=== PATIENT | female | born 1990 | race Caucasian/White ===

== ENCOUNTER 2016-11-20 | Emergency (ER) | payer OTHER ==
--- NOTE | 2016-11-20 13:06 | ED ---
Skin/Abscess/FB HPI - General Chief complaint: Skin/Abscess/Foreign Body Stated complaint: Abscess Time Seen by Provider: 11/20/16 12:54 Source: patient, RN notes reviewed Mode of arrival: ambulatory Limitations: no limitations - History of Present Illness Initial comments: 25 yo female presents to the ER with cc labial abscess. Patient states started a few days ago. Patient denies any drainage from the area. Patient does admit to a history of abscesses. Patient denies any history of MRSA. This been no fever or chills. She is not is any redness or drainage from the area. Patient states that she was concerned due to the redness and swelling so she thought that they should be evaluated. Patient denies any recent fever, chills, shortness of breath, chest pain, back pain, abdominal pain, nausea vomiting, numbness or tingling, dysuria or hematuria, constipation or diarrhea, headaches or visual changes, or any other current symptoms. - Related Data Home Medications Medication Instructions Recorded Confirmed Gabapentin [Neurontin] 600 mg PO TID PRN 07/08/16 11/20/16 Previous Rx's Medication Instructions Recorded Sulfamethox-Tmp 800-160Mg [Bactrim 2 each PO Q12HR #56 tab 11/20/16 DS 800-160 mg] Allergies Allergy/AdvReac Type Severity Reaction Status Date / Time No Known Allergies Allergy Verified 11/20/16 12:58 Review of Systems ROS Statement: Those systems with pertinent positive or pertinent negative responses have been documented in the HPI. ROS Other: All systems not noted in ROS Statement are negative. 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 Date of last positivie culture/infection: 2008 MDRO Source:: lip Past Surgical History: No Surgical Hx Reported Additional Past Surgical History / Comment(s): Chest tube Past Psychological History: Anxiety, Depression Smoking Status: Former smoker Past Alcohol Use History: Occasional Past Drug Use History: None Reported - Past Family History Mother Family Medical History: Cancer, Musculoskeletal Disorder, Osteoarthritis (OA), Rheumatoid Arthritis (RA) General Exam Limitations: no limitations General appearance: alert, in no apparent distress ENT exam: Present: normal exam, mucous membranes moist Neck exam: Present: normal inspection. Absent: tenderness, meningismus, lymphadenopathy Respiratory exam: Present: normal lung sounds bilaterally. Absent: respiratory distress, wheezes, rales, rhonchi, stridor Cardiovascular Exam: Present: regular rate, normal rhythm, normal heart sounds. Absent: systolic murmur, diastolic murmur, rubs, gallop, clicks External exam: Present: erythema, swelling, other (labial abscess) Neurological exam: Present: alert, oriented X3, CN II-XII intact. Absent: motor sensory deficit Psychiatric exam: Present: normal affect, normal mood Skin exam: Present: warm, dry, intact, normal color. Absent: rash Course Vital Signs 11/20/16 12:32 Temperature 97.0 F L Pulse Rate 86 Respiratory 18 Rate Blood Pressure 126/89 O2 Sat by Pulse 99 Oximetry Procedures - Procedures Initial comment: Procedure: Incision and drainage The skin overlying the abscess was prepped with Betadine, and anesthetized with 1% lidocaine without epinephrine. A #11 scalpel was then used to incise the abscess. Some purulent material was then extracted from the lesion. Wound culture obtained. Gauze dressing placed on top, The patient tolerated the procedure well. Medical Decision Making - Medical Decision Making 25-year-old female presents to the emergency department with a chief complaint labial abscess. This time patient went I&D procedure. Discussed return for hours and follow-up. We discussed all the patient's questions. She states she understood she isn't agreement plan. Patient will be discharged home. Disposition Clinical Impression: Abscess of left genital labia Disposition: HOME SELF-CARE Condition: Stable Instructions: Abscess (ED), Abscess Incision and Drainage (ED) Additional Instructions: Please use medication as discussed. Please follow up with family doctor if symptoms have not improved over the next two days. Please return to the emergency room if your symptoms increase or worsen or for any other concerns. Prescriptions: Sulfamethox-Tmp 800-160Mg [Bactrim DS 800-160 mg] 2 each PO Q12HR #56 tab Referrals: Fallon Oliver MD [STAFF PHYSICIAN] - 1-2 days Time of Disposition: 13:18
== END 2016-11-20 13:30 | disposition home or self-care (01) ==
CPT/HCPCS: 56405; 99282

== ENCOUNTER 2019-04-29 11:35 | Outpatient (CLI) | payer OTHER ==
[2019-04-29 12:24] LABS: Appearance,Urine Clear (Clear); Bilirubin,Urine Negative (Negative); Blood,Urine Negative (Negative); Color,Urine Yellow; Glucose,Urine (UA) Negative (Negative); Ketones,Urine 1+ (Negative); Leukocyte Esterase,Urine Negative (Negative); Nitrite,Urine Negative (Negative); PH, Urine 6.5 (5.0-8.0); Protein,Urine Negative (Negative); Specific Gravity,Urine 1.022 (1.001-1.035); Urobilinogen,Urine <2.0 mg/dL (<2.0)
[2019-04-29 12:35] VITALS: PULSE 81; RESP 16; TEMP 98.1
--- NOTE | 2019-04-29 17:59 | P.MSEPDOC ---
Presenting Problems - Arrival Data Date of Arrival on Unit: 04/29/19 Time of Arrival on Unit: 11:35 Mode of Transport: Ambulatory - Complaint OB-Reason for Admission/Chief Complaint: Other Comment: cramping Medical History - Information : 2 Para: 0 Term: 0 : 0 Abortions: Spontaneous or Elective: 1 Number of Living Children: 0 - Gestational Age Gestational Age by RICHAR (wks/days): 22 Weeks and 5 Days - History Complications: Smoker Review of Systems - Review of Systems Constitutional: No problems Breast: No problems ENT: No problems Cardiovascular: No problems Respiratory: No problems Gastrointestinal: No problems Genitourinary: No problems Musculoskeletal: No problems Neurological: No problems Skin: No problems Vital Signs - Temperature Temperature: 98.1 F Temperature Source: Temporal Artery Scan - Pulse Right Brachial Pulse Rate: 81 Pulse Assessment Method: Automatic Cuff - Respirations Respiratory Rate: 16 Oxygen Delivery Method: Room Air Medical Screen Scoring (Pre) - Cervical Exam Dilation: Exam Deferred Effacement: Exam Deferred Membranes: Intact - Uterine Contractions Frequency: N/A Duration: N/A Intensity: N/A - Maternal Vital Signs Maternal Temperature: N/A Signs of Preeclampsia: N/A Maternal Respirations: N/A - Assessment - Baby A Heart Rate - NICHD Category: Category I (Normal) = 0 - Total Score - Baby A Total Score - Baby A: 0 - Total Score - Baby B Total Score - Baby B: 0 - Total Score - Baby C Total Score - Baby C: 0 - Level of Risk - Baby A Level of Risk - Baby A: Low (0-5) - Level of Risk - Baby B Level of Risk - Baby B: Low (0-5) - Level of Risk - Baby C Level of Risk - Baby C: Low (0-5) Physician Notification (Pre) - Notification Comment Comment: doppler 131-148, abdomen soft and nontender to palpation Physician Notification (Post) - Physician Notified Physician Notified Date: 04/29/19 Physician Notified Time: 12:47 Spoke With: Juanito Fountain Order Received: Yes - Notification Comment Comment: +1 Ketones in urine, not jonathan per toco, closed thick and firm. D/C with instruction to find ob care provider Disposition - Disposition OB Disposition: Discharge to home, Written follow up instructions reviewed Discharge Date: 04/29/19 Discharge Time: 13:00 I agree with the RN Medical Screening Exam: Yes Risk & Benefit of care provided described in d/c instruction: Yes Diagnosis: FALSE LABOR BEFORE 37 COMPLETED WEEKS OF GEST, THIRD TRI
== END 2019-04-29 13:00 | disposition home or self-care (01) ==
LOC: FBPOP 11:35
PROVIDERS: ATTEND Obstetrics & Gynecology
DX: O47.03 False labor before 37 completed weeks of gestation, third trimester (principal); Z3A.22 22 weeks gestation of pregnancy
CPT/HCPCS: 81003; G0463; 99213

== ENCOUNTER → 2019-11-02 | Outpatient (CLI) | payer OTHER ==
[2019-11-02 16:42] LABS: Albumin 4.3 g/dL (3.80-4.90); Albumin/Globulin Ratio 1.87 (1.60-3.17); Anion Gap 7.7 mmol/L (4.00-12.00); Carbon Dioxide 25.3 mmol/L (21.6-31.8); Globulin 2.3 g/dL (1.6-3.3); Non-African American GFR(CKD) 77.7 (60.0-200.0); Potassium 4.2 mmol/L (3.5-5.5); Total Bilirubin 1.2 mg/dL (0.3-1.2); Total Protein 6.6 g/dL (6.2-8.2)
== END | disposition home or self-care (01) ==
LOC: LABWHC1 10:56
PROVIDERS: ATTEND Internal Medicine
DX: Z01.810 Encounter for preprocedural cardiovascular examination (principal)
CPT/HCPCS: 36415; 80053

== ENCOUNTER → 2019-11-16 | Outpatient (CLI) | payer OTHER ==
[2019-11-16 11:28] LABS: HGB 14.9 gm/dL (11.4-16.0); MCH 33.2 pg (25.0-35.0); MCHC 34.8 g/dL (31.0-37.0); MCV 95.5 fL (80.0-100.0); Mean Platelet Volume 7.9; Platelet Count 254 k/uL (150-450); WBC 5.5 k/uL (3.8-10.6)
[2019-11-16 11:42] LABS: Partial Thromboplastin Time 24.3 sec (22.0-30.0); Prothrombin Time 10.2 sec (9.0-12.0)
[2019-11-16 16:59] LABS: Anion Gap 7.4 mmol/L (4.00-12.00); Calcium 9.4 mg/dL (8.7-10.3); Carbon Dioxide 25.6 mmol/L (21.6-31.8); Non-African American GFR(CKD) 77.7 (60.0-200.0); Potassium 4.1 mmol/L (3.5-5.5)
== END | disposition home or self-care (01) ==
LOC: LABWHC1 11:05
PROVIDERS: ATTEND Internal Medicine
DX: Z01.810 Encounter for preprocedural cardiovascular examination (principal); I36.1 Nonrheumatic tricuspid (valve) insufficiency; I38 Endocarditis, valve unspecified
CPT/HCPCS: 36415; 80048; 85027; 85610; 85730

== ENCOUNTER 2019-11-19 09:32 | Emergency (ER) | payer OTHER ==
[2019-11-19 10:48] LABS: Basophils # (A) 0.1 k/uL (0-0.2); Basophils % (A) 1 %; Eosinophils # (A) 0.1 k/uL (0-0.7); Eosinophils % (A) 1 %; HCT 45.2 % (34.0-46.0); HGB 15.1 gm/dL (11.4-16.0); Lymphocytes # (A) 1.6 k/uL (1.0-4.8); Lymphocytes % (A) 23 %; MCH 31.9 pg (25.0-35.0); MCHC 33.4 g/dL (31.0-37.0); MCV 95.6 fL (80.0-100.0); Mean Platelet Volume 8.3; Monocytes # (A) 0.3 k/uL (0-1.0); Monocytes % (A) 4 %; Neutrophils # (A) 4.8 k/uL (1.3-7.7); Neutrophils % (A) 69 %; Platelet Count 246 k/uL (150-450); RBC 4.73 m/uL (3.80-5.40); RDW 12.1 % (11.5-15.5); WBC 6.9 k/uL (3.8-10.6)
[2019-11-19 10:51] LABS: Appearance,Urine Clear (Clear); Bacteria,Urine Rare /hpf; Bilirubin,Urine Negative (Negative); Blood,Urine Negative (Negative); Color,Urine Yellow; Glucose,Urine (UA) Negative (Negative); Ketones,Urine Negative (Negative); Leukocyte Esterase,Urine Moderate (Negative); Mucus,Urine Rare /hpf; Nitrite,Urine Negative (Negative); Protein,Urine Negative (Negative); RBC,Urine 1 /hpf (0-5); Squamous Epithelial Cell,Urine 4 /hpf (0-4); Urobilinogen,Urine <2.0 mg/dL (<2.0); WBC,Urine 3 /hpf (0-5)
[2019-11-19] MEDS ORDERED: KETOROLAC 30 MG/ML 1 ML VIAL IVP STA (10:52)
--- NOTE | 2019-11-19 10:57 | XR ---
EXAMINATION TYPE: XR chest 2V DATE OF EXAM: 11/19/2019 COMPARISON: NONE HISTORY: Chest pain TECHNIQUE: Frontal and lateral views of the chest are obtained. FINDINGS: There is no focal air space opacity, pleural effusion, or pneumothorax seen. The cardiac silhouette size is at the upper limit of normal. The osseous structures are intact. There are overl jesus alberto cardiac leads. IMPRESSION: No acute cardiopulmonary process.
[2019-11-19 11:03] LABS: ALT 29 U/L (4-34); AST 32 U/L (14-36); African American GFR (CKD) >90 (>60 ml/min/1.73 sqM); Albumin 4.2 g/dL (3.5-5.0); Alkaline Phosphatase 40 U/L (38-126); Amylase 44 U/L (30-110); Anion Gap 8 mmol/L; Blood Urea Nitrogen 18 mg/dL (7-17); Carbon Dioxide 22 mmol/L (22-30); Chloride 110 mmol/L (98-107); Glucose 114 mg/dL (74-99); Magnesium 1.9 mg/dL (1.6-2.3); Non-African American GFR(CKD) >90 (>60 ml/min/1.73 sqM); Sodium 140 mmol/L (137-145); Total Bilirubin 1.6 mg/dL (0.2-1.3); Total Protein 7.3 g/dL (6.3-8.2)
[2019-11-19 11:17] LABS: Potassium 4.9 mmol/L (3.5-5.1)
[2019-11-19 11:18] LABS: Partial Thromboplastin Time 22.5 sec (22.0-30.0); Prothrombin Time 10.2 sec (9.0-12.0)
[2019-11-19 11:26] VITALS: RESP 18
[2019-11-19 11:34] LABS: D-Dimer <0.17 mg/L FEU (<0.60)
--- NOTE | 2019-11-19 11:39 | ED ---
General Adult HPI - General Chief complaint: Chest Pain Stated complaint: SOB, chest/flank pain Time Seen by Provider: 11/19/19 10:01 Source: patient, RN notes reviewed Mode of arrival: ambulatory Limitations: no limitations - History of Present Illness Initial comments: 28-year-old female with a past medical history of former IV drug abuse, severe tricuspid regurgitation secondary to bacterial endocarditis, presents to the emergency determine for chief complaint of chest pain or shortness of breath. Patient states that this has been ongoing for the past month that seems to be worsening. States the pain worsens when she takes a deep breath. States that she is 3-1/2 months. Patient had a negative heart catheterization yesterday by [facility]. She is supposed to see a cad programmer according to her blast furnace keeper.patient denies fevers. States she has not used IV drugs for 4 years. Patient has no other complaints at this time including chest pain, abdominal pain, nausea or vomiting, headache, or visual changes. Heart catheterization records from yesterday were obtained for evaluation of intrapulmonary and intracardiac pressures. These showed a normal right-sided pressure without intracardiac shunt. Normal cardiac output and cardiac index. - Related Data Home Medications Medication Instructions Recorded Confirmed No Known Home Medications 11/19/19 11/19/19 Allergies Allergy/AdvReac Type Severity Reaction Status Date / Time No Known Allergies Allergy Verified 11/19/19 11:19 Review of Systems ROS Statement: Those systems with pertinent positive or pertinent negative responses have been documented in the HPI. ROS Other: All systems not noted in ROS Statement are negative. 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 Date of last positivie culture/infection: 2008 MDRO Source:: lip Past Surgical History: No Surgical Hx Reported Additional Past Surgical History / Comment(s): Chest tube Past Psychological History: Anxiety, Depression Smoking Status: Current every day smoker Past Alcohol Use History: Occasional Past Drug Use History: Marijuana - Past Family History Mother Family Medical History: Cancer, Musculoskeletal Disorder, Osteoarthritis (OA), Rheumatoid Arthritis (RA) General Exam Limitations: no limitations General appearance: alert, in no apparent distress Head exam: Present: atraumatic, normocephalic, normal inspection Eye exam: Present: normal appearance, PERRL, EOMI. Absent: scleral icterus, conjunctival injection, periorbital swelling ENT exam: Present: normal exam, mucous membranes moist Neck exam: Present: normal inspection. Absent: tenderness, meningismus, lymphadenopathy Respiratory exam: Present: normal lung sounds bilaterally. Absent: respiratory distress, wheezes, rales, rhonchi, stridor Cardiovascular Exam: Present: regular rate, normal rhythm, normal heart sounds. Absent: systolic murmur, diastolic murmur, rubs, gallop, clicks GI/Abdominal exam: Present: soft, normal bowel sounds. Absent: distended, tenderness, guarding, rebound, rigid Course Vital Signs 11/19/19 11/19/19 11/19/19 09:38 09:57 11:26 Temperature 97.7 F Pulse Rate 98 73 Pulse Rate [ 95 Metal Dealer ] Respiratory 19 20 18 Rate Blood Pressure 117/90 120/77 O2 Sat by Pulse 100 98 Oximetry Medical Decision Making - Medical Decision Making 28 her old female with a significant past medical history of severe mitral valve regurgitation secondary to endocarditis from remote IV drug abuse presents to the emergency department for a chief complaint of worsening chest pain. Patient had a heart catheterization yesterday by Dr. Patel at [facility]. Patient states this was performed because she has had mild chest pain and shortness of breath since that time. Patient states that since history she has had an i ncrease in her chest pain so presented to this emergency department. Report was reviewed and patient had normal pressures on heart catheterization. Vitals are stable. CBC CMP generally unremarkable. Bilirubin 1.6 which is chronic. Given history of heart catheterization yesterday CT chest was ordered. Patient also complaining of severe flank pain so abdomen and pelvis was also obtained. This did show cardiomegaly with a trace of pericardial fluid and multiple less than 5 mm pulmonary nodules too small to characterize. Liver is also somewhat prominent, patient does have a history of hepatitis C. At this time given worsening pain after invasive procedure of heart catheterization as well as finding of trace pericardial fluid patient was transferred down to [facility] to see her blast furnace keeper for continuity of care. - Lab Data Result diagrams: 11/19/19 10:26 11/19/19 10:26 Lab Results 01/21/20 01/21/20 01/21/20 Range/Units 10:26 10:26 10:26 WBC 6.9 (3.8-10.6) k/uL RBC 4.73 (3.80-5.40) m/uL Hgb 15.1 (11.4-16.0) gm/dL Hct 45.2 (34.0-46.0) % MCV 95.6 (80.0-100.0) fL MCH 31.9 (25.0-35.0) pg MCHC 33.4 (31.0-37.0) g/dL RDW 12.1 (11.5-15.5) % Plt Count 246 (150-450) k/uL Neutrophils % 69 % Lymphocytes % 23 % Monocytes % 4 % Eosinophils % 1 % Basophils % 1 % Neutrophils # 4.8 (1.3-7.7) k/uL Lymphocytes # 1.6 (1.0-4.8) k/uL Monocytes # 0.3 (0-1.0) k/uL Eosinophils # 0.1 (0-0.7) k/uL Basophils # 0.1 (0-0.2) k/uL PT 10.2 (9.0-12.0) sec INR 1.0 (<1.2) APTT 22.5 (22.0-30.0) sec D-Dimer <0.17 (<0.60) mg/L FEU Sodium 140 (137-145) mmol/L Potassium 4.9 (3.5-5.1) mmol/L Chloride 110 H (98-107) mmol/L Carbon Dioxide 22 (22-30) mmol/L Anion Gap 8 mmol/L BUN 18 H (7-17) mg/dL Creatinine 0.83 (0.52-1.04) mg/dL Est GFR (CKD-EPI)AfAm >90 (>60 ml/min/1.73 sqM) Est GFR (CKD-EPI)NonAf >90 (>60 ml/min/1.73 sqM) Glucose 114 H (74-99) mg/dL Calcium 9.0 (8.4-10.2) mg/dL Magnesium 1.9 (1.6-2.3) mg/dL Total Bilirubin 1.6 H (0.2-1.3) mg/dL AST 32 (14-36) U/L ALT 29 (4-34) U/L Alkaline Phosphatase 40 (38-126) U/L Troponin I (0.000-0.034) ng/mL NT-Pro-B Natriuret Pep pg/mL Total Protein 7.3 (6.3-8.2) g/dL Albumin 4.2 (3.5-5.0) g/dL Amylase 44 (30-110) U/L Lipase 204 (23-300) U/L Urine Color Urine Appearance (Clear) Urine pH (5.0-8.0) Ur Specific [place] (1.001-1.035) Urine Protein (Negative) Urine Glucose (UA) (Negative) Urine Ketones (Negative) Urine Blood (Negative) Urine Nitrite (Negative) Urine Bilirubin (Negative) Urine Urobilinogen (<2.0) mg/dL Ur Leukocyte Esterase (Negative) Urine RBC (0-5) /hpf Urine WBC (0-5) /hpf Ur Squamous Epith Cells (0-4) /hpf Urine Bacteria (None) /hpf Urine Mucus (None) /hpf Urine HCG, Qual (Not Detectd) 11/19/19 11/19/19 11/19/19 Range/Units 10:26 10:26 10:26 WBC (3.8-10.6) k/uL RBC (3.80-5.40) m/uL Hgb (11.4-16.0) gm/dL Hct (34.0-46.0) % MCV (80.0-100.0) fL MCH (25.0-35.0) pg MCHC (31.0-37.0) g/dL RDW (11.5-15.5) % Plt Count (150-450) k/uL Neutrophils % % Lymphocytes % % Monocytes % % Eosinophils % % Basophils % % Neutrophils # (1.3-7.7) k/uL Lymphocytes # (1.0-4.8) k/uL Monocytes # (0-1.0) k/uL Eosinophils # (0-0.7) k/uL Basophils # (0-0.2) k/uL PT (9.0-12.0) sec INR (<1.2) APTT (22.0-30.0) sec D-Dimer (<0.60) mg/L FEU Sodium (137-145) mmol/L Potassium (3.5-5.1) mmol/L Chloride (98-107) mmol/L Carbon Dioxide (22-30) mmol/L Anion Gap mmol/L BUN (7-17) mg/dL Creatinine (0.52-1.04) mg/dL Est GFR (CKD-EPI)AfAm (>60 ml/min/1.73 sqM) Est GFR (CKD-EPI)NonAf (>60 ml/min/1.73 sqM) Glucose (74-99) mg/dL Calcium (8.4-10.2) mg/dL Magnesium (1.6-2.3) mg/dL Total Bilirubin (0.2-1.3) mg/dL AST (14-36) U/L ALT (4-34) U/L Alkaline Phosphatase (38-126) U/L Troponin I <0.012 (0.000-0.034) ng/mL NT-Pro-B Natriuret Pep 70 pg/mL Total Protein (6.3-8.2) g/dL Albumin (3.5-5.0) g/dL Amylase (30-110) U/L Lipase (23-300) U/L Urine Color Urine Appearance (Clear) Urine pH (5.0-8.0) Ur Specific [place] (1.001-1.035) Urine Protein (Negative) Urine Glucose (UA) (Negative) Urine Ketones (Negative) Urine Blood (Negative) Urine Nitrite (Negative) Urine Bilirubin (Negative) Urine Urobilinogen (<2.0) mg/dL Ur Leukocyte Esterase (Negative) Urine RBC (0-5) /hpf Urine WBC (0-5) /hpf Ur Squamous Epith Cells (0-4) /hpf Urine Bacteria (None) /hpf Urine Mucus (None) /hpf Urine HCG, Qual Not Detected (Not Detectd) 11/19/19 Range/Units 10:26 WBC (3.8-10.6) k/uL RBC (3.80-5.40) m/uL Hgb (11.4-16.0) gm/dL Hct (34.0-46.0) % MCV (80.0-100.0) fL MCH (25.0-35.0) pg MCHC (31.0-37.0) g/dL RDW (11.5-15.5) % Plt Count (150-450) k/uL Neutrophils % % Lymphocytes % % Monocytes % % Eosinophils % % Basophils % % Neutrophils # (1.3-7.7) k/uL Lymphocytes # (1.0-4.8) k/uL Monocytes # (0-1.0) k/uL Eosinophils # (0-0.7) k/uL Basophils # (0-0.2) k/uL PT (9.0-12.0) sec INR (<1.2) APTT (22.0-30.0) sec D-Dimer (<0.60) mg/L FEU Sodium (137-145) mmol/L Potassium (3.5-5.1) mmol/L Chloride (98-107) mmol/L Carbon Dioxide (22-30) mmol/L Anion Gap mmol/L BUN (7-17) mg/dL Creatinine (0.52-1.04) mg/dL Est GFR (CKD-EPI)AfAm (>60 ml/min/1.73 sqM) Est GFR (CKD-EPI)NonAf (>60 ml/min/1.73 sqM) Glucose (74-99) mg/dL Calcium (8.4-10.2) mg/dL Magnesium (1.6-2.3) mg/dL Total Bilirubin (0.2-1.3) mg/dL AST (14-36) U/L ALT (4-34) U/L Alkaline Phosphatase (38-126) U/L Troponin I (0.000-0.034) ng/mL NT-Pro-B Natriuret Pep pg/mL Total Protein (6.3-8.2) g/dL Albumin (3.5-5.0) g/dL Amylase (30-110) U/L Lipase (23-300) U/L Urine Color Yellow Urine Appearance Clear (Clear) Urine pH 7.0 (5.0-8.0) Ur Specific [place] 1.020 (1.001-1.035) Urine Protein Negative (Negative) Urine Glucose (UA) Negative (Negative) Urine Ketones Negative (Negative) Urine Blood Negative (Negative) Urine Nitrite Negative (Negative) Urine Bilirubin Negative (Negative) Urine Urobilinogen <2.0 (<2.0) mg/dL Ur Leukocyte Esterase Moderate H (Negative) Urine RBC 1 (0-5) /hpf Urine WBC 3 (0-5) /hpf Ur Squamous Epith Cells 4 (0-4) /hpf Urine Bacteria Rare H (None) /hpf Urine Mucus Rare H (None) /hpf Urine HCG, Qual (Not Detectd) Disposition Clinical Impression: Pericardial effusion, History of right heart catheterization, Chest pain Disposition: OTHER INSTITUTION NOT DEFINED Is patient prescribed a controlled substance at d/c from ED?: No Referrals: Mahad Blevins MD [Primary Care Provider] - 1-2 days Time of Disposition: 13:01 - Out of Hospital Transfer - Req. Specs Out of Hospital Transfer - Requested Specifics: Other Emergency Center ([facility])
--- NOTE | 2019-11-19 12:26 | CT ---
EXAMINATION TYPE: CT ChestAbdPelvis w con DATE OF EXAM: 11/19/2019 COMPARISON: None HISTORY: bilateral upper quadrant flank/back pain, difficulty breathing, post heart catheterization y esterday. CT DLP: 1621.5 mGycm Automated exposure control for dose reduction was used. CONTRAST: CT scan of the chest, abdomen and pelvis is performed without Oral Contrast and with IV Contrast, pat ient injected with 100 mL of Isovue 300. FINDINGS: LUNGS: Subsegmental areas of consolidation most typical of atelectasis. Lung the medial margin of the right upper lobe on axial image 20 there is a 3 mm pulmonary nodule. Posteriorly there is a 2 mm pul monary nodule. 2 mm left apical pulmonary nodule. No consolidative pneumonia. No pneumothorax. No siz able pleural effusion. MEDIASTINUM: The heart appears to be enlarged and there is a trace amount of pericardial fluid. Motio n artifact limits assessment of the aortic root. Remaining portion of the aorta is of normal caliber. Main pulmonary artery is prominent. Standard CT of the chest was performed therefore assessment for pulmonary embolism is nondiagnostic. OTHER: No additional significant abnormality is seen. LIVER/GB: Liver somewhat heterogeneous in appearance correlate clinically with LFTs to assess for fat ty infiltration or hepatocellular disease.. PANCREAS: No significant abnormality is seen. SPLEEN: No significant abnormality is seen. ADRENALS: No significant abnormality is seen. KIDNEYS: No significant abnormality is seen. BOWEL: No significant abnormality is seen. REPRODUCTIVE ORGANS: Simple appearing 2 cm left ovarian cyst suspected. LYMPH NODES: No greater than 1 cm abdominal or pelvic lymph nodes are appreciated. OSSEOUS STRUCTURES: No significant abnormality is seen. OTHER: Abdominal aorta of normal caliber. No free fluid. IMPRESSION: 1. Cardiomegaly with a trace of pericardial fluid. There are multiple less than 5 mm pulmonary nodule s which are too small to characterize and 6 month follow-up CT recommended. 2. Liver is somewhat prominent in size and heterogeneous enhancement correlate with liver function st udies to assess for hepatocellular disease or hepatic steatosis.
[2019-11-19 13:06] VITALS: BP 112/69; PULSE 70; TEMP 97.9
== END 2019-11-19 13:43 | disposition other institution (70) ==
LOC: EC 09:32
DX: I31.3 Pericardial effusion (noninflammatory) (principal); R10.9 Unspecified abdominal pain; F17.200 Nicotine dependence, unspecified, uncomplicated; Z86.14 Personal history of Methicillin resistant Staphylococcus aureus infection; Z95.818 Presence of other cardiac implants and grafts
CPT/HCPCS: 36415; 93005; 85379; 83880; 80053; 82150; 83690; 83735; 84484; 85025; 85610; 85730; 81001; 81025; 71046; 71260; 74177; 99285; 96374; J1885; Q9967

== ENCOUNTER → 2020-06-22 | Outpatient (CLI) | payer OTHER ==
[2020-06-22 13:30] LABS: Basophils % (A) 1 %; Eosinophils # (A) 0.1 k/uL (0-0.7); Eosinophils % (A) 2 %; HCT 46.6 % (34.0-46.0); HGB 15.4 gm/dL (11.4-16.0); Lymphocytes # (A) 2.2 k/uL (1.0-4.8); Lymphocytes % (A) 32 %; MCH 31.6 pg (25.0-35.0); MCHC 32.9 g/dL (31.0-37.0); MCV 96.1 fL (80.0-100.0); Monocytes # (A) 0.3 k/uL (0-1.0); Monocytes % (A) 4 %; Neutrophils # (A) 4.2 k/uL (1.3-7.7); Neutrophils % (A) 61 %; Platelet Count 248 k/uL (150-450); RBC 4.85 m/uL (3.80-5.40); RDW 12.2 % (11.5-15.5); WBC 6.9 k/uL (3.8-10.6)
[2020-06-22 19:37] LABS: African American GFR (CKD) 101.6 (60.0-200.0); Albumin 4.3 g/dL (3.80-4.90); Albumin/Globulin Ratio 1.79 (1.60-3.17); Anion Gap 7.7 mmol/L (4.00-12.00); BUN/Creat Ratio 14.44 Ratio (12.00-20.00); Calcium 9.5 mg/dL (8.7-10.3); Carbon Dioxide 26.3 mmol/L (21.6-31.8); Globulin 2.4 g/dL (1.6-3.3); Non-African American GFR(CKD) 87.6 (60.0-200.0); Potassium 4.3 mmol/L (3.5-5.5); Total Bilirubin 2.2 mg/dL (0.3-1.2); Total Protein 6.7 g/dL (6.2-8.2)
[2020-06-22 20:34] LABS: Hemoglobin A1C 5.3 % (4.0-6.0)
[2020-06-23 15:08] LABS: T4, Free (Free Thyroxine) 1.4 ng/dL (0.80-1.80)
[2020-06-23 18:40] LABS: Thyroid Peroxidase Antibodies 31.7 U/mL (0.0-60.0)
== END | disposition home or self-care (01) ==
LOC: LABWHC1 10:51
PROVIDERS: ATTEND Internal Medicine
DX: Z00.00 Encounter for general adult medical examination without abnormal findings (principal); R00.2 Palpitations; R53.83 Other fatigue
CPT/HCPCS: 36415; 80053; 83036; 84439; 84443; 84481; 85025; 86376; 86800

== ENCOUNTER → 2020-09-14 | Outpatient (CLI) | payer OTHER ==
--- NOTE | 2020-09-14 15:29 | XR ---
Right hand HISTORY: Pain, numbness 3 views of the right hand No comparisons Bone mineralization, joint spaces and alignment are maintained. IMPRESSION: No fracture or dislocation. Normal right hand.
--- NOTE | 2020-09-14 15:29 | XR ---
Thoracic spine HISTORY: Pain in back 3 views of the thoracic spine There is a dextroscoliosis centered at the mid thoracic spine. Thoracic vertebral bodies show preserv ed height and bone mineralization. Disc spaces are maintained. IMPRESSION: There is a spinal curvature.
== END | disposition home or self-care (01) ==
LOC: RADXRMAIN 14:52
PROVIDERS: ATTEND Internal Medicine
DX: M43.8X4 Other specified deforming dorsopathies, thoracic region (principal); M25.541 Pain in joints of right hand; R20.2 Paresthesia of skin
CPT/HCPCS: 72072

== ENCOUNTER → 2020-10-21 | Outpatient (CLI) | payer OTHER ==
--- NOTE | 2020-10-21 10:08 | MR ---
EXAMINATION TYPE: MR lumbar spine wo con DATE OF EXAM: 10/21/2020 COMPARISON: NONE HISTORY: LOW BACK PAIN TECHNIQUE: T1 and T2 axial and sagittal images of the lumbar spine are submitted. FINDINGS: There is no abnormal signal seen within the visualized spinal cord or paraspinal soft tissu es. At T12-L1 there is a focal left paracentral and lateral disc small protrusion. Mild narrowing foramin a. At L1-2 there is there is no evidence of degenerative disc disease, disc herniation or canal stenosis . No foraminal encroachment. At L2-3 there is no disc herniation or canal stenosis. No foraminal encroachment. There is mild hyper trophic change of the facets. At L3-4 there is disc desiccation and broad-based central disc small herniation with mild effacement of thecal sac. There is facet arthropathy and ligamentum flavum hypertrophy with mild bilateral doroteo inal encroachment. At L4-5 there is annular tear with broad-based central disc herniation. Facet hypertrophy and ligamen karrie flavum hypertrophy. There is mild central stenosis and bilateral foraminal encroachment. At L5-S1 there is no disc herniation or canal stenosis. No foraminal encroachment. IMPRESSION: 1. Degenerative disc disease and broad-based disc herniations at L3-4 and L4-5 resulting in effacemen t of thecal sac. Hypertrophic changes of the facets contribute to bilateral foraminal encroachment an d mild canal stenosis. 2. Left paracentral disc protrusion T12-L1 with mild left foraminal encroachment.
== END | disposition home or self-care (01) ==
LOC: RADMRIMAIN 08:45
PROVIDERS: ATTEND Internal Medicine
DX: M48.061 Spinal stenosis, lumbar region without neurogenic claudication (principal); M51.26 Other intervertebral disc displacement, lumbar region; M51.36 Other intervertebral disc degeneration, lumbar region
CPT/HCPCS: 72148

== ENCOUNTER 2021-01-25 10:27 | Emergency (ER) | payer OTHER ==
--- NOTE | 2021-01-25 11:13 | ED ---
General Adult HPI - General Chief complaint: Chest Pain Stated complaint: Chest pain/swelling in feet Source: patient, RN notes reviewed - History of Present Illness Initial comments: Patient is 30-year-old female with a history of endocarditis and leaking valve complaining of chest pain but mostly concerned with her feet swelling that happened a few days over the last week. Patient notes that she does have chronic chest pain and back pain. The most concerning part for her was her feet were swelling up several times over the last week. She does have a history of cardiomegaly. She denied any increase in chest pain severity or intensity or characteristics. She denied any feet swelling today while in the emergency depa rtment. She denied any short of breath headache nausea vomiting diarrhea constipation fever fatigue chills. - Related Data Home Medications Medication Instructions Recorded Confirmed ALPRAZolam [Xanax] 0.25 mg PO DAILY PRN 01/25/21 01/25/21 Buprenorphine HCl/Naloxone HCl 1 film SL BID PRN 01/25/21 01/25/21 [Suboxone 8 mg-2 mg Sl Film] Naproxen [Naprosyn] 500 mg PO BID PRN 01/25/21 01/25/21 Phentermine HCl [Adipex-P] 37.5 mg PO DAILY 01/25/21 01/25/21 tiZANidine [Zanaflex] 4 mg PO TID PRN 01/25/21 01/25/21 Allergies Allergy/AdvReac Type Severity Reaction Status Date / Time No Known Allergies Allergy Verified 01/25/21 12:55 Review of Systems ROS Statement: Those systems with pertinent positive or pertinent negative responses have been documented in the HPI. ROS Other: All systems not noted in ROS Statement are negative. 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 Date of last positivie culture/infection: 2008 MDRO Source:: lip Past Surgical History: No Surgical Hx Reported Additional Past Surgical History / Comment(s): Chest tube Past Psychological History: Anxiety, Depression Past Alcohol Use History: Occasional Past Drug Use History: Marijuana - Past Family History Mother Family Medical History: Cancer, Musculoskeletal Disorder, Osteoarthritis (OA), Rheumatoid Arthritis (RA) General Exam General appearance: alert, in no apparent distress Head exam: Present: atraumatic, normocephalic, normal inspection Eye exam: Present: normal appearance, PERRL, EOMI. Absent: scleral icterus, conjunctival injection, periorbital swelling ENT exam: Present: normal exam, mucous membranes moist Neck exam: Present: normal inspection. Absent: tenderness, meningismus, lymp hadenopathy Respiratory exam: Present: normal lung sounds bilaterally. Absent: respiratory distress, wheezes, rales, rhonchi, stridor Cardiovascular Exam: Present: regular rate, normal rhythm, normal heart sounds. Absent: systolic murmur, diastolic murmur, rubs, gallop, clicks GI/Abdominal exam: Present: soft, normal bowel sounds. Absent: distended, tenderness, guarding, rebound, rigid Extremities exam: Present: normal inspection, full ROM, normal capillary refill. Absent: tenderness, pedal edema, joint swelling, calf tenderness Neurological exam: Present: alert, oriented X3, CN II-XII intact Psychiatric exam: Present: normal affect, normal mood Skin exam: Present: warm, dry, intact, normal color, other (Several abrasions on arms and hands that are scabbed over with no signs or symptoms of infection.). Absent: rash Course Vital Signs 01/25/21 12:25 Temperature 98.3 F Pulse Rate 87 Respiratory 18 Rate Blood Pressure 113/63 O2 Sat by Pulse 98 Oximetry EKG Findings - EKG Comments: EKG Findings:: Ventricular rate 78 bpm, IL interval 162 ms, QRS duration 88 ms, QT/QTc is 378/430, PRT axes 51/87/43. Normal sinus rhythm with sinus arrhythmia, septal infarct, age undetermined abnormal ECG. Medical Decision Making - Medical Decision Making 30-year-old female complaining of chronic chest pain and bilateral feet swelling several times over the last week. Chest x-ray, EKG, cardiac workup ordered. Chest x-ray stable, labs unremarkable. Patient left AMA due to a family emergency, she was informed of the risks versus benefits. And that she would take all responsibility for any adverse event. Case discussed with Dr. Duran - Lab Data Result diagrams: 01/25/21 10:53 01/25/21 10:53 Lab Results 01/25/21 01/25/21 01/25/21 Range/Units 10:53 10:53 10:53 WBC 5.0 (3.8-10.6) k/uL RBC 4.37 (3.80-5.40) m/uL Hgb 14.6 (11.4-16.0) gm/dL Hct 41.6 (34.0-46.0) % MCV 95.3 (80.0-100.0) fL MCH 33.3 (25.0-35.0) pg MCHC 35.0 (31.0-37.0) g/dL RDW 12.6 (11.5-15.5) % Plt Count 226 (150-450) k/uL MPV 7.7 Neutrophils % 72 % Lymphocytes % 20 % Monocytes % 5 % Eosinophils % 1 % Basophils % 1 % Neutrophils # 3.6 (1.3-7.7) k/uL Lymphocytes # 1.0 (1.0-4.8) k/uL Monocytes # 0.2 (0-1.0) k/uL Eosinophils # 0.1 (0-0.7) k/uL Basophils # 0.0 (0-0.2) k/uL PT 10.6 (9.0-12.0) sec INR 1.0 (<1.2) APTT 25.1 (22.0-30.0) sec Sodium 139 (137-145) mmol/L Potassium 4.0 (3.5-5.1) mmol/L Chloride 107 (98-107) mmol/L Carbon Dioxide 27 (22-30) mmol/L Anion Gap 5 mmol/L BUN 15 (7-17) mg/dL Creatinine 0.79 (0.52-1.04) mg/dL Est GFR (CKD-EPI)AfAm >90 (>60 ml/min/1.73 sqM) Est GFR (CKD-EPI)NonAf >90 (>60 ml/min/1.73 sqM) Glucose 87 (74-99) mg/dL Calcium 9.2 (8.4-10.2) mg/dL Magnesium 1.9 (1.6-2.3) mg/dL Total Bilirubin 2.2 H (0.2-1.3) mg/dL AST 22 (14-36) U/L ALT 17 (4-34) U/L Alkaline Phosphatase 47 (38-126) U/L Troponin I (0.000-0.034) ng/mL Total Protein 6.5 (6.3-8.2) g/dL Albumin 3.8 (3.5-5.0) g/dL 01/25/21 Range/Units 10:53 WBC (3.8-10.6) k/uL RBC (3.80-5.40) m/uL Hgb (11.4-16.0) gm/dL Hct (34.0-46.0) % MCV (80.0-100.0) fL MCH (25.0-35.0) pg MCHC (31.0-37.0) g/dL RDW (11.5-15.5) % Plt Count (150-450) k/uL MPV Neutrophils % % Lymphocytes % % Monocytes % % Eosinophils % % Basophils % % Neutrophils # (1.3-7.7) k/uL Lymphocytes # (1.0-4.8) k/uL Monocytes # (0-1.0) k/uL Eosinophils # (0-0.7) k/uL Basophils # (0-0.2) k/uL PT (9.0-12.0) sec INR (<1.2) APTT (22.0-30.0) sec Sodium (137-145) mmol/L Potassium (3.5-5.1) mmol/L Chloride (98-107) mmol/L Carbon Dioxide (22-30) mmol/L Anion Gap mmol/L BUN (7-17) mg/dL Creatinine (0.52-1.04) mg/dL Est GFR (CKD-EPI)AfAm (>60 ml/min/1.73 sqM) Est GFR (CKD-EPI)NonAf (>60 ml/min/1.73 sqM) Glucose (74-99) mg/dL Calcium (8.4-10.2) mg/dL Magnesium (1.6-2.3) mg/dL Total Bilirubin (0.2-1.3) mg/dL AST (14-36) U/L ALT (4-34) U/L Alkaline Phosphatase (38-126) U/L Troponin I <0.012 (0.000-0.034) ng/mL Total Protein (6.3-8.2) g/dL Albumin (3.5-5.0) g/dL - EKG Data -: EKG Interpreted by Me EKG shows normal: sinus rhythm Rate: normal EKG Comments: Ventricular rate 78 bpm, IL interval 162 ms, QRS duration 88 ms, QT/QTc is 378/430, PRT axes 51/87/43. Normal sinus rhythm with sinus arrhythmia, septal infarct, age undetermined abnormal ECG. - Radiology Data Radiology results: report reviewed, image reviewed Chest x-ray: Stable cardiomegaly. Disposition Clinical Impression: Chest pain Disposition: Left Against Medical Advice Condition: Stable Instructions (If sedation given, give patient instructions): Chest Pain (ED) Is patient prescribed a controlled substance at d/c from ED?: No Referrals: Sherine Fuentes MD [Primary Care Provider] - 1-2 days Time of Disposition: 13:35
--- NOTE | 2021-01-25 11:47 | XR ---
EXAMINATION TYPE: XR chest 2V DATE OF EXAM: 01/25/2021 COMPARISON: Prior chest x-ray 11/19/2019 HISTORY: Chest pain TECHNIQUE: Frontal and lateral views of the chest are obtained. FINDINGS: There is no focal air space opacity, pleural effusion, or pneumothorax seen. The cardiac silhouette size is stable, heart remains enlarged. The osseous structures are intact. IMPRESSION: Stable cardiomegaly.
[2021-01-25 11:49] LABS: Basophils % (A) 1 %; Eosinophils # (A) 0.1 k/uL (0-0.7); Eosinophils % (A) 1 %; HCT 41.6 % (34.0-46.0); HGB 14.6 gm/dL (11.4-16.0); Lymphocytes % (A) 20 %; MCH 33.3 pg (25.0-35.0); MCV 95.3 fL (80.0-100.0); Mean Platelet Volume 7.7; Monocytes # (A) 0.2 k/uL (0-1.0); Monocytes % (A) 5 %; Neutrophils # (A) 3.6 k/uL (1.3-7.7); Neutrophils % (A) 72 %; Platelet Count 226 k/uL (150-450); RBC 4.37 m/uL (3.80-5.40); RDW 12.6 % (11.5-15.5)
[2021-01-25 11:56] LABS: ALT 17 U/L (4-34); AST 22 U/L (14-36); African American GFR (CKD) >90 (>60 ml/min/1.73 sqM); Albumin 3.8 g/dL (3.5-5.0); Alkaline Phosphatase 47 U/L (38-126); Anion Gap 5 mmol/L; Blood Urea Nitrogen 15 mg/dL (7-17); Calcium 9.2 mg/dL (8.4-10.2); Carbon Dioxide 27 mmol/L (22-30); Chloride 107 mmol/L (98-107); Glucose 87 mg/dL (74-99); Magnesium 1.9 mg/dL (1.6-2.3); Non-African American GFR(CKD) >90 (>60 ml/min/1.73 sqM); Sodium 139 mmol/L (137-145); Total Bilirubin 2.2 mg/dL (0.2-1.3); Total Protein 6.5 g/dL (6.3-8.2)
[2021-01-25 11:57] LABS: Partial Thromboplastin Time 25.1 sec (22.0-30.0); Prothrombin Time 10.6 sec (9.0-12.0)
[2021-01-25 12:30] VITALS: BP 113/63; PULSE 87; RESP 18; TEMP 98.3
== END 2021-01-25 13:39 | disposition left against medical advice (07) ==
LOC: EC 10:27
DX: R07.9 Chest pain, unspecified (principal); M79.89 Other specified soft tissue disorders; G89.29 Other chronic pain; M54.9 Dorsalgia, unspecified; F41.9 Anxiety disorder, unspecified; F32.9 Major depressive disorder, single episode, unspecified; Z79.899 Other long term (current) drug therapy
CPT/HCPCS: 71046; 80053; 83735; 84484; 85025; 85610; 85730; 93005; 99285

== ENCOUNTER → 2021-02-09 | Outpatient (CLI) | payer OTHER ==
--- NOTE | 2021-02-09 13:56 | MR ---
EXAMINATION TYPE: MR thoracic spine wo con DATE OF EXAM: 02/09/2021 COMPARISON: None HISTORY: Pain in thoracic spine Standard multiplanar, multisequence MRI departmental protocol Multiplanar, multisequence images of the thoracic spine were acquired. FINDINGS: There is loss of disc signal space at T5-6, T6-T7, T7-T8, T8-9. There is left paracentral disc protrusion at T7-T8 mild effacement of thecal sac. No spinal cord cont act. Minimal right paracentral disc bulging T8-T9. Left paracentral disc bulging T10-T11 with minimal effacement of thecal sac. There is left paracentral disc protrusion or herniation extending laterally at T12-L1. Small focal ar ea of abnormal signals incidentally seen within the cervical spinal cord. Neural foramina are patent bilaterally. IMPRESSION: 1. Incidental note is made of abnormal signal within the cervical spinal cord which is partially incl uded on exam suggestive of a probable syrinx. Myelitis is not excluded. 2. Multilevel degenerative disc disease with left paracentral and lateral small disc herniation T12-L 1 3. Left paracentral disc broad-based bulging T10-T11 with mild effacement of thecal sac. 4. Left paracentral disc protrusion T7-T8 mild effacement of thecal sac but no spinal cord contact
--- NOTE | 2021-02-10 07:50 | MR ---
EXAMINATION TYPE: MR brain/cspine wo DATE OF EXAM: 02/09/2021 COMPARISON: NONE HISTORY: Cervicalgia, DO, numbness, pain between shoulder blades TECHNIQUE: Multiplanar, multisequence imaging of the brain and brainstem along with cervical spine ar e all performed without IV contrast. FINDINGS: Brain: Diffusion weighted images demonstrate no evidence of a recent infarct or other diffusion abnormality. There is no extraaxial fluid collection or significant white matter signal abnormality. The ventricu lar system and cisternal spaces are normal in size and appearance. The brain volume is age appropria te. Midline structures demonstrate normal morphology. The craniocervical junction appears within normal limits. Normal vascular flow voids are present. Some distortion at level of anterior globes, visualiz ed paranasal sinuses are clear. IMPRESSION: Unremarkable study. MRI CERVICAL SPINE: FINDINGS: Sagittal images of the cervical spine show the craniocervical junction to appear within nor mal limits. There is increased central signal or syrinx running from mid-C6 level to superior C7 leve l roughly 11 mm length sagittal image 8. Slight grade 1 retrolisthesis C5 on C6 and C6 on C7. The ve rtebral body and intravertebral disk heights are normal. The bone marrow signal intensity is within normal limits. Axial images show C2-C3 through C4-C5 level to appear within normal limits. Axial images at C5-C6 levels with tiny central disc protrusion mildly effacing anterior thecal sac, t here is also right foraminal disc protrusion component causing mild right-sided neural foraminal narr owing axial image 24. Axial images at C6-C7 level show right paracentral disc protrusion effacing the anterior thecal sac, the bilateral neural foramina. Axial images at C7-T1 level appear within normal limits. There is redemonstration of known syrinx at C6-C7 disc space level. IMPRESSION: Short segment 11 mm syrinx centered at C6-C7 level. Subtle spondylolisthesis and degenera tive changes C5-C6 and C6-C7 level as detailed above.
== END | disposition home or self-care (01) ==
LOC: RADMRIMAIN 09:11
PROVIDERS: ATTEND Nurse Practitioner Family
DX: M43.12 Spondylolisthesis, cervical region (principal); M50.223 Other cervical disc displacement at C6-C7 level; M99.71 Connective tissue and disc stenosis of intervertebral foramina of cervical region; M51.25 Other intervertebral disc displacement, thoracolumbar region; M51.34 Other intervertebral disc degeneration, thoracic region
CPT/HCPCS: 70551; 72141; 72146

== ENCOUNTER 2021-02-20 15:33 | Emergency (ER) | payer OTHER ==
[2021-02-20 15:46] VITALS: TEMP 97.9
[2021-02-20] MEDS ORDERED: diphenhydrAMINE 50 MG CAP PO STA (16:47)
--- NOTE | 2021-02-20 16:47 | ED ---
Skin/Abscess/FB HPI - General Chief complaint: Skin/Abscess/Foreign Body Stated complaint: possible MRSA-revisit Time Seen by Provider: 02/20/21 15:51 Source: patient, RN notes reviewed Mode of arrival: ambulatory Limitations: no limitations - History of Present Illness Initial comments: 30-year-old white female, Presents to the emergency room with complaints of 3 weeks of pruritic lesions that started on her face and half since developed on her arms and legs hands chest and back. Patient states that she pinches since resistant small amounts of fluid come out. Patient states was seen here in the hospital 3 weeks ago but left without discharge papers. 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 Endocarditis in 2015, history of sciatica, pneumothorax and MRSA. Patient admits to smoking 2-3 cigarettes a day. Took 1 Vicodin at her mom gave her yesterday for pain. has neuropathy and has seen neurology Dr. Kwon, had a brain and thoracic MRI done February 10 and was found to have a syrinx, pleasant millimeters at C6-C7 with degenerative disc disease at C5 to C7. SHe also has degenerative disc disease T12 to L1. Patient states here mainly for the rash that keeps spreading but also has some bloating of her abdomen. Patient states last menstrual period was last week. Patient is anxious, heart rate 117 oxygen saturation 100% blood pressure 135/70 afebrile at 97.9. complaint: lesion (multiple lesions to face, chest, back, arms and legs and hands) -: week(s) (3) Location: generalized Severity scale (1-10): 8 Quality: other (burning) Consistency: constant Improves with: none Worsens with: other (itching) Context: IVDA (IVDA clean for 5 years) Treatments Prior to Arrival: other (vicodin yesterday) - Related Data Home Medications Medication Instructions Recorded Confirmed ALPRAZolam [Xanax] 0.25 mg PO DAILY PRN 01/25/21 01/25/21 Buprenorphine HCl/Naloxone HCl 1 film SL BID PRN 01/25/21 01/25/21 [Suboxone 8 mg-2 mg Sl Film] Naproxen [Naprosyn] 500 mg PO BID PRN 01/25/21 01/25/21 Phentermine HCl [Adipex-P] 37.5 mg PO DAILY 01/25/21 01/25/21 tiZANidine [Zanaflex] 4 mg PO TID PRN 01/25/21 01/25/21 Previous Rx's Medication Instructions Recorded Mupirocin 2% Oint [Bactroban 2% 1 applic TOPICAL TID #22 gm 02/20/21 Oint] Allergies Allergy/AdvReac Type Severity Reaction Status Date / Time No Known Allergies Allergy Verified 02/20/21 15:46 Review of Systems ROS Statement: Those systems with pertinent positive or pertinent negative responses have been documented in the HPI. ROS Other: All systems not noted in ROS Statement are negative. 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 Date of last positivie culture/infection: 2008 MDRO Source:: lip Past Surgical History: No Surgical Hx Reported Additional Past Surgical History / Comment(s): Chest tube Past Psychological History: Anxiety, Depression Smoking Status: Current every day smoker Past Alcohol Use History: Occasional Past Drug Use History: Cocaine, Marijuana - Past Family History Mother Family Medical History: Cancer, Musculoskeletal Disorder, Osteoarthritis (OA), Rheumatoid Arthritis (RA) General Exam Limitations: no limitations General appearance: alert, in no apparent distress, anxious Head exam: Present: atraumatic, normocephalic, normal inspection Eye exam: Present: normal appearance, PERRL, EOMI. Absent: scleral icterus, conjunctival injection, periorbital swelling Pupils: Present: mydriatic ENT exam: Present: normal exam, mucous membranes moist Neck exam: Present: normal inspection, full ROM. Absent: tenderness, mening ismus, lymphadenopathy Respiratory exam: Present: normal lung sounds bilaterally. Absent: respiratory distress, wheezes, rales, rhonchi, stridor, chest wall tenderness, accessory muscle use, decreased breath sounds Cardiovascular Exam: Present: tachycardia GI/Abdominal exam: Present: soft, normal bowel sounds. Absent: distended, tenderness, guarding, rebound, rigid Extremities exam: Present: full ROM, other (dusky toes). Absent: pedal edema Course Vital Signs 02/20/21 02/20/21 15:42 18:30 Temperature 97.9 F Pulse Rate 117 H 81 Respiratory 22 16 Rate Blood Pressure 135/70 132/86 O2 Sat by Pulse 100 100 Oximetry Medical Decision Making - Medical Decision Making Patient is afebrile, does not present with any abscesses, fluctuations, or indurations tuning of her lesions. WBC count is 11.5. Patient is compulsive the itching and was advised to take Benadryl as needed. Will prescribed Bactroban to apply to lesions and follow-up with dermatology. Patient has appoi ntments for her neurological concerns. Will recommend Tylenol and/or Motrin for pain. Case discussed with Dr. Everett who is agreeable to this plan. - Lab Data Result diagrams: 02/20/21 17:38 Lab Results 02/20/21 Range/Units 17:38 WBC 11.5 H (3.8-10.6) k/uL RBC 4.92 (3.80-5.40) m/uL Hgb 15.6 (11.4-16.0) gm/dL Hct 46.5 H (34.0-46.0) % MCV 94.6 (80.0-100.0) fL MCH 31.7 (25.0-35.0) pg MCHC 33.5 (31.0-37.0) g/dL RDW 12.9 (11.5-15.5) % Plt Count 286 (150-450) k/uL MPV 8.2 Neutrophils % 72 % Lymphocytes % 22 % Monocytes % 4 % Eosinophils % 1 % Basophils % 0 % Neutrophils # 8.3 H (1.3-7.7) k/uL Lymphocytes # 2.5 (1.0-4.8) k/uL Monocytes # 0.5 (0-1.0) k/uL Eosinophils # 0.1 (0-0.7) k/uL Basophils # 0.0 (0-0.2) k/uL Disposition Clinical Impression: Excoriated rash Disposition: HOME SELF-CARE Condition: Fair Instructions (If sedation given, give patient instructions): Dermatitis (ED) Additional Instructions: Take Benadryl to help with itching, use the Bactroban as prescribed. Follow-up with the primary care doctor and/or dermatology for continuation of care. Prescriptions: Mupirocin 2% Oint [Bactroban 2% Oint] 1 applic TOPICAL TID #22 gm Is patient prescribed a controlled substance at d/c from ED?: No Referrals: Sherine Fuentes MD [Primary Care Provider] - 1-2 days Claudia Victoria MD [STAFF PHYSICIAN] - 1-2 days Time of Disposition: 18:18
[2021-02-20 17:46] LABS: Basophils % (A) 0 %; Eosinophils # (A) 0.1 k/uL (0-0.7); Eosinophils % (A) 1 %; HCT 46.5 % (34.0-46.0); HGB 15.6 gm/dL (11.4-16.0); Lymphocytes # (A) 2.5 k/uL (1.0-4.8); Lymphocytes % (A) 22 %; MCH 31.7 pg (25.0-35.0); MCHC 33.5 g/dL (31.0-37.0); MCV 94.6 fL (80.0-100.0); Mean Platelet Volume 8.2; Monocytes # (A) 0.5 k/uL (0-1.0); Monocytes % (A) 4 %; Neutrophils # (A) 8.3 k/uL (1.3-7.7); Neutrophils % (A) 72 %; Platelet Count 286 k/uL (150-450); RBC 4.92 m/uL (3.80-5.40); RDW 12.9 % (11.5-15.5); WBC 11.5 k/uL (3.8-10.6)
[2021-02-20 18:31] VITALS: BP 132/86; PULSE 81; RESP 16
== END 2021-02-20 18:47 | disposition home or self-care (01) ==
LOC: EC 15:33
DX: R21 Rash and other nonspecific skin eruption (principal); F41.9 Anxiety disorder, unspecified; F32.9 Major depressive disorder, single episode, unspecified; F17.210 Nicotine dependence, cigarettes, uncomplicated; F12.90 Cannabis use, unspecified, uncomplicated; F14.90 Cocaine use, unspecified, uncomplicated
CPT/HCPCS: 36415; 85025; 87040; 99283

== ENCOUNTER → 2021-03-22 | Outpatient (CLI) | payer OTHER ==
--- NOTE | 2021-03-23 01:48 | MR ---
EXAMINATION TYPE: MR cervical spine wo/w con DATE OF EXAM: 03/22/2021 COMPARISON: 02/09/2021 HISTORY: Syringomyelia and syringobulbia. Chest pain, numbness, swelling and bilateral shoulder weakn ess for 4-5 years. CONTRAST: Standard multiplanar, multisequence MRI departmental protocol utilizing 7.5 mL intravenous Gadavist g adolinium contrast. The cervical vertebra have normal alignment. Disc spaces are fairly normal. There is no compression f racture there is no spinal stenosis. There is developmentally adequate spinal canal. There is a syrin x in the cervical spinal cord measures 13 mm in length and 2 mm in diameter at the C6 level. There is no evidence of a mass in the cord. Brainstem is intact. Visualized cerebellum is intact. There is a small posterior disc bulge at C6-7 without compromise of the spinal canal. Contrast images show no pa thologic enhancement. The posterior elements are intact. There is no evidence of paraspinal mass. IMPRESSION: Syrinx in the lower cervical spinal cord without change compared to 02/09/2021 exam. No underlying mas s identified. No spinal stenosis. Minimal posterior disc bulging at C6-7.
== END | disposition home or self-care (01) ==
LOC: RADMRIMAIN 21:15
PROVIDERS: ATTEND Neurological Surgery
DX: M50.223 Other cervical disc displacement at C6-C7 level (principal)
CPT/HCPCS: 72156; A9585

== ENCOUNTER → 2021-04-19 | Outpatient (CLI) | payer OTHER | END | disposition home or self-care (01) | LOC: LABWHC1 14:07 | PROVIDERS: ATTEND Nurse Practitioner | DX: L02.91 Cutaneous abscess, unspecified (principal) | CPT/HCPCS: 87070 ==

== ENCOUNTER → 2022-01-14 | Outpatient (CLI) | payer OTHER ==
--- NOTE | 2022-01-15 17:24 | MR ---
MRI CERVICAL SPINE: CLINICAL HISTORY: Headaches and neck pain. History of syrinx. TECHNIQUE: Multiplanar, multisequence imaging of the cervical spine is performed without and with IV contrast, 8 cc of gadolinium was given intravenously. COMPARISON: Prior MRI cervical spine March 22, 2021. FINDINGS: Sagittal images of the cervical spine show the craniocervical junction to remain within nor mal limits. There is increased central signal or syrinx running from mid-C6 level to superior C7 leve l roughly 11 mm length sagittal image 9 current study stable from prior. Stable Slight grade 1 retrol isthesis C5 on C6 and C6 on C7. The vertebral body and intravertebral disk heights remain normal. T he bone marrow signal intensity is within normal limits. No abnormal postcontrast enhancement is seen . Axial images show C2-C3 through C4-C5 level to remain within normal limits. Axial images at C5-C6 level redemonstrates subtle spondylolisthesis and tiny central disc protrusion minimally effacing anterior thecal sac, patent bilateral neural foramina. No significant change from prior. Axial images at C6-C7 level demonstrate right paracentral disc protrusion mildly effacing the anterio r thecal sac, the bilateral neural foramina are patent. Central syrinx redemonstrated. Axial images at C7-T1 level remain within normal limits. IMPRESSION: Short segment 11 mm syrinx redemonstrated at C6-C7 level. Subtle spondylolisthesis and de generative changes C5-C6 and C6-C7 level as detailed above. No significant change from prior MRI.
== END | disposition home or self-care (01) ==
LOC: RADMRIMAIN 19:47
PROVIDERS: ATTEND Psychiatry & Neurology Neurology
DX: M43.12 Spondylolisthesis, cervical region (principal); M47.22 Other spondylosis with radiculopathy, cervical region
CPT/HCPCS: 72156; A9585

== ENCOUNTER 2024-01-28 12:39 | Inpatient (IN) | payer OTHER ==
--- NOTE | 2024-01-28 13:04 | ED ---
General Adult HPI - General Chief complaint: Extremity Problem,Nontraumatic Stated complaint: R Foot Swelling Time Seen by Provider: 01/28/24 12:42 Source: patient, RN notes reviewed, old records reviewed Mode of arrival: ambulatory Limitations: no limitations - History of Present Illness Initial comments: 33-year-old female presenting for evaluation of bilateral foot swelling and pain and swelling on the right ankle. Patient does use IV drugs and does inject in her feet veins. She denies fever. Denies significant dyspnea. States she does have pain in the right medial ankle. - Related Data Home Medications Medication Instructions Recorded Confirmed Buprenorphine HCl/Naloxone HCl 1 film SL TID 01/25/21 01/28/24 [Suboxone 8 mg-2 mg Sl Film] Allergies Allergy/AdvReac Type Severity Reaction Status Date / Time No Known Allergies Allergy Verified 01/28/24 12:52 Review of Systems ROS Statement: Those systems with pertinent positive or pertinent negative responses have been documented in the HPI. ROS Other: All systems not noted in ROS Statement are negative. 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 Date of last positivie culture/infection: 2008 MDRO Source:: lip Past Surgical History: No Surgical Hx Reported Additional Past Surgical History / Comment(s): Chest tube Past Psychological History: Anxiety, Depression Smoking Status: Current every day smoker Past Alcohol Use History: Occasional Past Drug Use History: Cocaine, Marijuana - Past Family History Mother Family Medical History: Cancer, Musculoskeletal Disorder, Osteoarthritis (OA), Rheumatoid Arthritis (RA) General Exam Limitations: no limitations General appearance: alert, in no apparent distress Head exam: Present: atraumatic, normocephalic Eye exam: Present: normal appearance, PERRL ENT exam: Present: normal exam Neck exam: Present: normal inspection. Absent: tenderness, meningismus Respiratory exam: Present: normal lung sounds bilaterally. Absent: respiratory distress, wheezes Cardiovascular Exam: Present: regular rate, normal rhythm GI/Abdominal exam: Present: soft. Absent: distended, tenderness Extremities exam: Present: pedal edema, other (Swelling in the right medial malleolus and midfoot, multiple venous puncture sites throughout both feet). Absent: calf tenderness Neurological exam: Present: alert, oriented X3 Psychiatric exam: Present: normal affect, normal mood Skin exam: Present: warm, dry Course Vital Signs 01/28/24 01/28/24 12:50 15:23 Temperature 98.5 F Pulse Rate 88 94 Respiratory 20 18 Rate Blood Pressure 145/87 119/74 O2 Sat by Pulse 99 96 Oximetry Medical Decision Making - Medical Decision Making Was pt. sent in by a medical professional or institution (, PA, PAD MACHINE FEEDER, urgent care, hospital, or fpc...) When possible be specific @ -No Did you speak to anyone other than the patient for history (EMS, parent, family, police, friend...)? What history was obtained from this source @ -No Did you review nursing and triage notes (agree or disagree)? Why? @ -I reviewed and agree with nursing and triage notes Were old charts reviewed (outside hosp., previous admission, EMS record, old EKG, old radiological studies, urgent care reports/EKG's, fpc records)? Report findings @ -No old charts were reviewed Differential Diagnosis (chest pain, altered mental status, abdominal pain women, abdominal pain men, vaginal bleeding, weakness, fever, dyspnea, syncope, headache, dizziness, GI bleed, back pain, seizure, CVA, palpatations, mental health, musculoskeletal)? @ -Endocarditis, congestive heart failure, sepsis, cellulitis EKG interpreted by me (3pts min.). @ -Sinus rhythm rate of 91, ID interval 170, QRS duration 97, QTc [address] segment elevation. X-rays interpreted by me (1pt min.). @ -X-ray right ankle, soft tissue swelling without bony abnormality, no soft tissue gas, chest x-ray cardiomegaly which is increased from prior as well as persistent trace pericardial effusion CT interpreted by me (1pt min.). @ -None done U/S interpreted by me (1pt. min.). @ -None done What testing was considered but not performed or refused? (CT, X-rays, U/S, labs)? Why? @ -None What meds were considered but not given or refused? Why? @ -None Did you discuss the management of the patient with other professionals (professionals i.e. , MARIAMA, PAD MACHINE FEEDER, lab, RT, psych nurse, social research assistant, or nurse manager, teacher, contracts officer, leather case finisher)? Give summary @ -No Was smoking cessation discussed for >3mins.? @ -No Was critical care preformed (if so, how long)? @ -No Were there social determinants of health that impacted care today? How? (Homelessness, low income, unemployed, alcoholism, drug addiction, transportation, low edu. Level, literacy, decrease access to med. care, detention, rehab)? @ -No Was there de-escalation of care discussed even if they declined (Discuss DNR or withdrawal of care, Hospice)? DNR status @ -No What co-morbidities impacted this encounter? (DM, HTN, Smoking, COPD, CAD, Cancer, CVA, ARF, Chemo, Hep., AIDS, mental health diagnosis, sleep apnea, morbid obesity)? @ -Previous history of endocarditis, IV drug use Was patient admitted / discharged? Hospital course, mention meds given and route, prescriptions, significant lab abnormalities, going to OR and other pertinent info. @ -33-year-old female with bilateral lower extremity swelling, bilateral hand swelling, history of endocarditis. Patient also has cellulitis of the right ankle and multiple areas of venous injection from IVDA. Patient has an elevated white blood cell count. She has chest x-ray showing cardiomegaly with pleural effusion. She will require echo and is covered with antibiotics awaiting culture results. Case discussed with Dr. Avila who will admit. Undiagnosed new problem with uncertain prognosis? @ -No Drug Therapy requiring intensive monitoring for toxicity (Heparin, Nitro, Insulin, Cardizem)? @ -No Were any procedures done? @ -No Diagnosis/symptom? @Cardiomegaly, CHF, cellulitis, rule out endocarditis Acute, or Chronic, or Acute on Chronic? @ -Acute Uncomplicated (without systemic symptoms) or Complicated (systemic symptoms)? @ -Default Side effects of treatment? @ -No Exacerbation, Progression, or Severe Exacerbation? @ -No Poses a threat to life or bodily function? How? (Chest pain, [place], [place], pneumonia, PE, COPD, DKA, ARF, appy, cholecystitis, CVA, Diverticulitis, Homicidal, Suicidal, threat to staff... and all critical care pts) @ -Yes, endocarditis, sepsis - Lab Data Result diagrams: 01/28/24 13:30 01/28/24 14:44 Lab Results 01/28/24 01/28/2401/27/24 Range/Units 13:30 13:30 14:44 WBC 15.7 H (3.8-10.6) k/uL RBC 4.82 (3.80-5.40) m/uL Hgb 14.0 (11.4-16.0) gm/dL Hct 44.2 (34.0-46.0) % MCV 91.7 (80.0-100.0) fL MCH 29.1 (25.0-35.0) pg MCHC 31.8 (31.0-37.0) g/dL RDW 13.7 (11.5-15.5) % Plt Count 394 (150-450) k/uL MPV 7.4 Neutrophils % 78 % Lymphocytes % 16 % Monocytes % 4 % Eosinophils % 1 % Basophils % 0 % Neutrophils # 12.2 H (1.3-7.7) k/uL Lymphocytes # 2.6 (1.0-4.8) k/uL Monocytes # 0.6 (0-1.0) k/uL Eosinophils # 0.1 (0-0.7) k/uL Basophils # 0.1 (0-0.2) k/uL Sodium 139 (137-145) mmol/L Potassium 5.2 H (3.5-5.1) mmol/L Chloride 107 (98-107) mmol/L Carbon Dioxide 22 (22-30) mmol/L Anion Gap 10 mmol/L BUN 12 (7-17) mg/dL Creatinine 0.59 (0.52-1.04) mg/dL Est GFR (CKD-EPI)AfAm >90 (>60 ml/min/1.73 sqM) Est GFR (CKD-EPI)NonAf >90 (>60 ml/min/1.73 sqM) Glucose 92 (74-99) mg/dL Plasma Lactic Acid Russell (0.7-2.0) mmol/L Calcium 8.9 (8.4-10.2) mg/dL Magnesium 2.1 (1.6-2.3) mg/dL Total Bilirubin 2.8 H (0.2-1.3) mg/dL AST 40 H (14-36) U/L ALT 18 (4-34) U/L Alkaline Phosphatase 82 (38-126) U/L Troponin I <0.012 (0.000-0.034) ng/mL NT-Pro-B Natriuret Pep 510 pg/mL Total Protein 8.4 H (6.3-8.2) g/dL Albumin 4.3 (3.5-5.0) g/dL 01/28/24 Range/Units 14:44 WBC (3.8-10.6) k/uL RBC (3.80-5.40) m/uL Hgb (11.4-16.0) gm/dL Hct (34.0-46.0) % MCV (80.0-100.0) fL MCH (25.0-35.0) pg MCHC (31.0-37.0) g/dL RDW (11.5-15.5) % Plt Count (150-450) k/uL MPV Neutrophils % % Lymphocytes % % Monocytes % % Eosinophils % % Basophils % % Neutrophils # (1.3-7.7) k/uL Lymphocytes # (1.0-4.8) k/uL Monocytes # (0-1.0) k/uL Eosinophils # (0-0.7) k/uL Basophils # (0-0.2) k/uL Sodium (137-145) mmol/L Potassium (3.5-5.1) mmol/L Chloride (98-107) mmol/L Carbon Dioxide (22-30) mmol/L Anion Gap mmol/L BUN (7-17) mg/dL Creatinine (0.52-1.04) mg/dL Est GFR (CKD-EPI)AfAm (>60 ml/min/1.73 sqM) Est GFR (CKD-EPI)NonAf (>60 ml/min/1.73 sqM) Glucose (74-99) mg/dL Plasma Lactic Acid Russell 1.7 (0.7-2.0) mmol/L Calcium (8.4-10.2) mg/dL Magnesium (1.6-2.3) mg/dL Total Bilirubin (0.2-1.3) mg/dL AST (14-36) U/L ALT (4-34) U/L Alkaline Phosphatase (38-126) U/L Troponin I (0.000-0.034) ng/mL NT-Pro-B Natriuret Pep pg/mL Total Protein (6.3-8.2) g/dL Albumin (3.5-5.0) g/dL Disposition Clinical Impression: Cellulitis, CHF (congestive heart failure) Disposition: ADMITTED IP TO THIS HOSP Condition: Stable Is patient prescribed a controlled substance at d/c from ED?: No Time of Disposition: 16:51
[2024-01-28 13:42] LABS: Basophils # (A) 0.1 k/uL (0-0.2); Basophils % (A) 0 %; Eosinophils # (A) 0.1 k/uL (0-0.7); Eosinophils % (A) 1 %; HCT 44.2 % (34.0-46.0); Lymphocytes # (A) 2.6 k/uL (1.0-4.8); Lymphocytes % (A) 16 %; MCH 29.1 pg (25.0-35.0); MCHC 31.8 g/dL (31.0-37.0); MCV 91.7 fL (80.0-100.0); Mean Platelet Volume 7.4; Monocytes # (A) 0.6 k/uL (0-1.0); Monocytes % (A) 4 %; Neutrophils # (A) 12.2 k/uL (1.3-7.7); Neutrophils % (A) 78 %; Platelet Count 394 k/uL (150-450); RBC 4.82 m/uL (3.80-5.40); RDW 13.7 % (11.5-15.5); WBC 15.7 k/uL (3.8-10.6)
[2024-01-28] MEDS ORDERED: VANCOMYCIN IV PER PHARMACY 1 EACH MISC MISCELLANE PRN (14:21)
[2024-01-28] MEDS ORDERED: HYDROcodone/APAP 5-325MG 1 EACH TAB PO PRN (14:47)
[2024-01-28] MEDS ORDERED: LORazepam 2 MG/ML INJ IV PRN (14:47)
[2024-01-28] MEDS: VANCOMYCIN 1,500 MG in SODIUM CHLORIDE 0.9% 500 ML 500 ML IVPB ONE (14:49)
[2024-01-28 16:05] LABS: ALT 18 U/L (4-34); AST 40 U/L (14-36); African American GFR (CKD) >90 (>60 ml/min/1.73 sqM); Albumin 4.3 g/dL (3.5-5.0); Alkaline Phosphatase 82 U/L (38-126); Anion Gap 10 mmol/L; Blood Urea Nitrogen 12 mg/dL (7-17); Calcium 8.9 mg/dL (8.4-10.2); Carbon Dioxide 22 mmol/L (22-30); Chloride 107 mmol/L (98-107); Glucose 92 mg/dL (74-99); Magnesium 2.1 mg/dL (1.6-2.3); Non-African American GFR(CKD) >90 (>60 ml/min/1.73 sqM); Sodium 139 mmol/L (137-145); Total Bilirubin 2.8 mg/dL (0.2-1.3); Total Protein 8.4 g/dL (6.3-8.2)
[2024-01-28 16:12] LABS: NT-Pro-B-Type Natriuretic Pept 510 pg/mL
[2024-01-28] MEDS ORDERED: NALOXONE 0.4 MG/ML 1 ML VIAL IV PRN (16:16)
--- NOTE | 2024-01-28 16:24 | XR ---
EXAMINATION TYPE: XR ankle complete RT DATE OF EXAM: 01/28/2024 2:41 PM CLINICAL INDICATION:Female, 33 years old with history of pain/swelling; [facility] COMPARISON: None TECHNIQUE: The right ankle is imaged in frontal, lateral and oblique projections. FINDINGS: Osseous mineralization appears appropriate. No acute fracture lucency or significant malalignment. No osseous destructive changes. Ankle mortise appears preserved. Talar dome looks intact. Soft tissues show mild nonspecific swelling , appears greatest over the medial malleolar region. No radiopaque foreign body is seen. IMPRESSION: 1. No acute osseous abnormality of the right ankle. 2. Soft tissue swelling.
[2024-01-28 16:25] LABS: Potassium 5.2 mmol/L (3.5-5.1)
--- NOTE | 2024-01-28 16:28 | XR ---
EXAMINATION TYPE: XR chest 2V DATE OF EXAM: 01/28/2024 2:41 PM CLINICAL INDICATION:Female, 33 years old with history of BL LE swelling; [facility] COMPARISON: 01/25/2021 TECHNIQUE: XR chest 2V. Frontal and lateral views of the chest.. FINDINGS: Lines/Tubes/Devices: No indwelling lines are seen. Heart/mediastinum: Pericardial pericardial silhouette is moderately enlarged, and larger than on the prior study. Unremarkable mediastinal contours. Pulmonary vascularity: Pulmonary vascular congestion is present. Lungs/Pleura: Mild increased perihilar interstitial and alveolar opacities suggestive of edema. No fo jordon consolidation or pneumothorax. Suspect trace pleural effusions. Musculoskeletal: No acute osseous abnormality demonstrated in the limits of the exam. Other findings: None. IMPRESSION: Enlarged cardiopericardial silhouette, could be from cardiomegaly with pericardial effusion not exclu ded. This appears relatively increased since 2020. Pulmonary vascular congestion and trace bilateral pleural effusions. Correlate clinically for congest chance heart failure.
[2024-01-28] MEDS: cloNIDine HCL 0.1 MG TAB PO SCH (19:32)
[2024-01-28] MEDS: HEPARIN SODIUM,PORCINE 5,000 UNIT/ML 1 ML VIAL SQ SCH (19:52)
--- NOTE | 2024-01-28 21:09 | HP ---
HISTORY AND PHYSICAL CHIEF COMPLAINT: Pain and swelling of both feet, right more the left. HISTORY OF PRESENT ILLNESS: This 33-year-old woman with the past extensive history of IV drug abuse, was complaining of bilateral leg swelling and right foot infection cellulitis. 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 There is no history of fever or rigors. The patient was apparently clean for 10 years, relapsed recently. 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 The patient has a 4-year-old child. PAST MEDICAL HISTORY: History of IV drug abuse, endocarditis, MRSA, anxiety, depression. The rest of history and chart is also reviewed. HOME MEDICATIONS: Zanaflex. Dose and rest of medications reviewed. ALLERGIES: None. FAMILY HISTORY: History of DJD, rheumatoid arthritis. SOCIAL HISTORY: History of smoking, IV drug abuse, cocaine, marijuana. REVIEW OF SYSTEMS: Fourteen-point review is negative as mentioned earlier. PHYSICAL EXAMINATION: VITAL SIGNS: Pulse is 88, blood pressure 142/87, respirations 20. HEENT: Conjunctivae normal. NECK: No JVD. CARDIOVASCULAR: S1 and S2. RESPIRATIONS: Breath sounds diminished at the bases. No rhonchi, no crackles. ABDOMEN: Soft, nontender. LEGS: Bilateral leg swelling and significant extensive cellulitis and IV lining also present. LABS: Repeat 15.2. ASSESSMENT: 1. Right foot swelling and cellulitis. 2. Bilateral leg swelling, rule out congestive heart failure. 3. History of infective endocarditis. 4. History of IV drug abuse. 5. History of anxiety, depression. 6. History of Methicillin-resistant Staphylococcus aureus. RECOMMENDATIONS AND DISCUSSION: This 33-year-old woman presented with multiple complex medical issues. We will monitor the patient closely. We will continue with vancomycin. Infectious Disease evaluation. Await 2D echo with Doppler. Resume the home medications, p.r.n. Ativan. Otherwise, recommend social consult and substance abuse rehab. Prognosis guarded because of multiple complex medical conditions. See orders for details. MMODL / IJN: [id number] /
[2024-01-28] MEDS: VANCOMYCIN 1,500 MG in SODIUM CHLORIDE 0.9% 500 ML 500 ML IVPB SCH (23:26)
[2024-01-29] MEDS: PANTOPRAZOLE 40 MG TABLET PO SCH (05:59)
[2024-01-29 09:15] LABS: Basophils % (A) 0 %; Eosinophils # (A) 0.2 k/uL (0-0.7); Eosinophils % (A) 2 %; HCT 45.9 % (34.0-46.0); HGB 14.3 gm/dL (11.4-16.0); Hypochromasia Slight; Lymphocytes # (A) 3.4 k/uL (1.0-4.8); Lymphocytes % (A) 32 %; MCH 29.7 pg (25.0-35.0); MCHC 31.2 g/dL (31.0-37.0); MCV 95.5 fL (80.0-100.0); Mean Platelet Volume 7.7; Monocytes # (A) 0.5 k/uL (0-1.0); Monocytes % (A) 5 %; Neutrophils # (A) 6.4 k/uL (1.3-7.7); Neutrophils % (A) 59 %; Platelet Count 351 k/uL (150-450); RBC 4.81 m/uL (3.80-5.40); RDW 14.2 % (11.5-15.5); WBC 10.7 k/uL (3.8-10.6)
[2024-01-29 09:30] LABS: African American GFR (CKD) >90 (>60 ml/min/1.73 sqM); Anion Gap 8 mmol/L; Blood Urea Nitrogen 13 mg/dL (7-17); Calcium 8.6 mg/dL (8.4-10.2); Carbon Dioxide 21 mmol/L (22-30); Chloride 111 mmol/L (98-107); Glucose 84 mg/dL (74-99); Non-African American GFR(CKD) >90 (>60 ml/min/1.73 sqM); Potassium 4.5 mmol/L (3.5-5.1); Sodium 140 mmol/L (137-145)
--- NOTE | 2024-01-29 13:45 | CA ---
Transthoracic Echo Report Name: Idania Zaidi Age: 33 Gender: F : 1990 Exam Date: 01/29/2024 09:02 Exam Location: [facility] Ht (in): 68 Wt (lb): 190 Ordering Physician: Tejinder Avila MD Attending/Referring Phys: Glove Turner And Former Ching Mahajan RDCS Procedure CPT: Indications: chf Cardiac Hx: Technical Quality: Contrast 1: Definity Total Dose (mL): 3 Contrast 2: Total Dose (mL): MEASUREMENTS (Male / Female) Normal Values 2D ECHO LV Diastolic Diameter PLAX 3.8 cm 4.2 - 5.9 / 3.9 - 5.3 cm LV Systolic Diameter PLAX 2.8 cm IVS Diastolic Thickness 1.2 cm 0.6 - 1.0 / 0.6 - 0.9 cm LVPW Diastolic Thickness 1.1 cm 0.6 - 1.0 / 0.6 - 0.9 cm LV Relative Wall Thickness 0.6 LVOT Diameter 2.2 cm Aortic Root Diameter 2.7 cm LA Systolic Diameter LX 3.0 cm 3.0 - 4.0 / 2.7 - 3.8 cm DOPPLER AV Peak Velocity 101.9 cm/s AV Peak Gradient 4.2 mmHg AV Mean Velocity 76.9 cm/s AV Mean Gradient 2.5 mmHg AV Velocity Time Integral 18.8 cm LVOT Peak Velocity 88.6 cm/s LVOT Peak Gradient 3.1 mmHg LVOT Velocity Time Integral 18.3 cm LVOT Stroke Volume 71.4 cm??? LVOT Stroke Volume Index 35.7 ml/m??? LVOT Cardiac Index 2398.9 cm???/min???m??? AV Area Cont Eq vti 3.8 cm??? AV Area Cont Eq pk 3.4 cm??? Mitral E Point Velocity 67.9 cm/s Mitral A Point Velocity 49.7 cm/s Mitral E to A Ratio 1.4 MV Deceleration Time 124.7 ms TR Peak Velocity 200.4 cm/s TR Peak Gradient 16.1 mmHg PV Peak Velocity 54.4 cm/s PV Peak Gradient 1.2 mmHg FINDINGS Left Ventricle Left ventricular ejection fraction is estimated at 55 %.normal left ventricular wall motion. Normal left ventricular diastolic filling pattern. Right Ventricle Moderate right ventricular dilatation. Right ventricular systolic pressure estimated at 47mmhg. Moderate-severe pulmonary hypertension. Right Atrium Moderate right atrial dilatation. Left Atrium Normal left atrial size. Mitral Valve Trace to mild mitral regurgitation. Aortic Valve No aortic valve stenosis or regurgitation. Tricuspid Valve Moderate to severe tricuspid regurgitation. Pulmonic Valve Trace pulmonic regurgitation. Pericardium No pericardial effusion. Aorta Normal size aortic root and proximal ascending aorta. CONCLUSIONS Left ventricular ejection fraction 55% Moderate right ventricular dilation with RVSP 47 Moderate to severe tricuspid regurgitation Moderate right atrial dilation Trace mitral regurgitation No pericardial effusion Consider MAXIMINO/cardiac MRI to further evaluate source of patient's right ventricular dilation, tricuspid regurgitation Previewed by: Dr. Guzman Seymour DO (Electronically Signed) Final Date: 29 January 2024 13:44
[2024-01-29] MEDS: NON FORMULARY DRUG (Buprenorphine Hcl/Naloxone Hcl [Suboxone 8 Mg-2 Mg Sl Film] 1 EACH Fil PO SCH (16:28)
--- NOTE | 2024-01-29 23:21 | P.CONS ---
History of Present Illness - Reason for Consult Consult date: 01/29/24 Cellulitis Requesting physician: Tejinder Avila - Chief Complaint Pain and swelling to the right ankle x few days - History of Present Illness Patient is a 33-year-old female with a past medical history significant for IV drug use endocarditis secondary to MRSA presenting to the hospital for evaluation of bilateral foot swelling and pain as well as swelling redness to the right ankle area apparently symptom has been getting worse for the last few days and the patient previously admitted to injecting into her feet however not recently patient complaining of diffuse swelling redness of bilateral lower extremities. Right ankle with associated pain to be sharp moderate intensity without radiation patient currently do not have any open wound or any drainage with the symptoms the patient has been evaluated on presentation to the hospital the patient was afebrile and no fever have been recorded subsequently patient was mildly tachycardic but not hypotensive or hypoxic she did have a white count of 15.7 with a left shift creatinine has been normal liver isms mildly elevated blood cultures obtained which are currently pending patient was started on vancomycin infectious was consulted today for further management of antibiotic therapy patient did have a x-ray of the ankle has no acute bony abnormality soft tissue swelling patient did have echocardiogram moderate to severe tricuspid regurgitation did not mention any vegetation Review of Systems Positive point and negatives has been mentioned in the HPI, complete review of systems was performed and all other systems are negative Past Medical History Past Medical History: No Reported History Additional Past Medical History / Comment(s): Endocarditis, leaky heart valve (unknown which) , sciatica, pneumothorax (r/t endocarditis), continues with IV drug abuse History of Any Multi-Drug Resistant Organisms: MRSA Year Discovered:: 2008 MDRO Source:: lip Past Surgical History: No Surgical Hx Reported Additional Past Surgical History / Comment(s): Chest tube Past Anesthesia/Blood Transfusion Reactions: No Reported Reaction Past Psychological History: Anxiety, Depression Smoking Status: Current every day smoker Past Alcohol Use History: Occasional Past Drug Use History: Cocaine, Heroin, IV Drug Use, Marijuana, Opiates - Past Family History Mother Family Medical History: Cancer, Musculoskeletal Disorder, Osteoarthritis (OA), Rheumatoid Arthritis (RA) Medications and Allergies Home Medications Medication Instructions Recorded Confirmed Type Buprenorphine HCl/Naloxone HCl 1 film SL TID 01/25/21 01/28/24 History [Suboxone 8 mg-2 mg Sl Film] Pantoprazole [Protonix] 40 mg PO AC-BRKFST #30 tab 01/31/24 Rx Sulfamethox-Tmp 800-160Mg [Bactrim 1 tab PO Q12HR 7 Days #14 tab 01/31/24 Rx DS 800-160 mg] Allergies Allergy/AdvReac Type Severity Reaction Status Date / Time No Known Allergies Allergy Verified 01/28/24 12:52 Physical Exam Vitals: Vital Signs Temp Pulse Pulse Resp BP BP Pulse Ox 01/29/24 15:19 98.1 F 95 16 118/63 99 01/29/24 11:21 98.3 F 89 15 92/48 99 01/29/24 08:49 98.2 F 82 17 116/72 99 01/29/24 03:12 98.1 F 75 19 96/64 100 01/28/24 23:38 98.1 F 77 19 90/59 98 01/28/24 20:00 98.1 F 101 H 19 155/75 98 01/28/24 17:57 98.9 F 104 H 16 126/78 97 01/28/24 17:32 97.7 F 89 16 112/68 98 Intake and Output 01/29/24 01/29/24 01/29/24 06:59 14:59 22:59 Other: Voiding Method Toilet Toilet # Voids 2 GENERAL DESCRIPTION: Middle-aged female lying in bed, no distress. No tachypnea or accessory muscle of respiration use. HEENT: Shows Pallor , no scleral icterus. Oral mucous membrane is dry. No pharyngeal erythema or thrush NECK: Trachea central, no thyromegaly. LUNGS: Unlabored breathing. Clear to auscultation anteriorly. No wheeze or crackle. HEART: S1, S2, regular rate and rhythm. No loud murmur ABDOMEN: Soft, no tenderness , guarding or rigidity, no organomegaly EXTREMITIES: Did have diffuse on the bilateral extremity with more swelling redness of the right ankle and lower leg area slightly warm no fluctuation SKIN: No rash, no masses palpable. NEUROLOGICAL: The patient is awake, alert, oriented x3, mood and affect normal. Results CBC & Chem 7: 01/30/24 08:53 01/31/24 09:41 Labs: Abnormal Lab Results - Last 24 Hours (Table) 03/31/24 04/01/24 04/01/24 Range/Units 14:44 08:33 08:33 WBC 10.7 H (3.8-10.6) k/uL Potassium 5.2 H (3.5-5.1) mmol/L Chloride 111 H (98-107) mmol/L Carbon Dioxide 21 L (22-30) mmol/L Total Bilirubin 2.8 H (0.2-1.3) mg/dL AST 40 H (14-36) U/L Total Protein 8.4 H (6.3-8.2) g/dL Assessment and Plan (1) Cellulitis of right ankle Status: Acute Code(s): L03.115 - CELLULITIS OF RIGHT LOWER LIMB SNOMED Code(s): 81668710928003688 Plan: 1patient presented hospital increasing pain and swelling bilateral extremities patient's right ankle area did show some diffuse swelling and redness concerning for cellulitis x-rays were negative for any bony abnormality questionable related to her IV drug use and injecting the area however the patient categorically denied injecting into that area recently patient did have previous history of MRSA infection and will need to cover for MRSA while waiting for the culture to finalize 2-marked area of the redness 3-vancomycin pharmacy to dose target trough of 15 while watching kidney function and Vanco trough closely We will follow on clinical condition and cultures to further adjust medication if needed Thank you for this consultation we will follow the patient along with you Dictation was produced using [employer] dictation software. please excuse any g rammatical, word or spelling errors. Time with Patient: Greater than 30
[2024-01-30] MEDS: VANCOMYCIN TROUGH DUE 1 EACH MISC MISCELLANE ONE (02:19)
--- NOTE | 2024-01-30 06:39 | PN ---
PROGRESS NOTE DATE OF SERVICE: 01/29/2024 This 33-year-old woman who was admitted with right foot swelling and cellulitis, had a history of IV drug abuse. Also, no chest pain, no palpitation, and 2D echo with Doppler showed ejection fraction 55%, moderate-severe tricuspid regurgitation. MAXIMINO was recommended by Dr. Seymour. No fever. No cough. PHYSICAL EXAMINATION: VITAL SIGNS: Pulse is 89, blood pressure 90/40, respirations 15. CHEST: No rhonchi. CARDIOVASCULAR: S1, S2. ABDOMEN: Soft. Nontender. SKIN: Diffuse infection at injection site. LABORATORY DATA: WBC 10.7. ASSESSMENT: 1. Right foot swelling and cellulitis, possibly secondary to IV drug abuse. 2. Bilateral leg swelling, rule out CHF. 3. History of infective endocarditis. 4. Moderate to severe tricuspid regurgitation. 5. History of IV drug abuse. 6. Anxiety, depression. 7. History of MRSA. RECOMMENDATIONS AND DISCUSSION: Recommend to continue current management. Continue the antibiotics. Infectious disease evaluation. I would also recommend cardiology consultation for possibly for MAXIMINO and continued evaluation of TR also. The patient had previous history of vegetations in the tricuspid valve, and apparently, the patient said there were considering surgery, but ultimately 6 weeks inpatient hospital IV antibiotics were given. MMODL / IJN: [id number] /
--- NOTE | 2024-01-30 10:10 | P.CRDCN ---
History of Present Illness History of present illness: HISTORY OF PRESENT ILLNESS: This is a 33-year-old female with a past medical history significant for IV drug abuse, valvular heart disease, and endocarditis. Patient follows with an assoc donatoe of Dr. Garcia in [place]. We have been asked to see the patient in consultation for tricuspid regurgitation. Patient examined at the bedside. Patient presented to the hospital due to discomfort in her right lower extremity. Patient is a IV drug abuser and does report injecting into her lower extremities. The patient currently denies any chest pain or pressure. She denies any shortness of breath. Patient was found to have a white count of 15 on admission and she was started on IV antibiotics. Blood cultures were obtained which are negative at the 24-hour susan. Echocardiogram was obtained revealing ejection fraction 55%, moderate right ventricular dilatation, moderate to severe pulmonary hypertension, moderate right atrial dilatation, trace to mild MR, moderate to severe TR, and no pericardial effusion. Patient states she had endocarditis approximately 10 years ago secondary to IV drug abuse. She was told at that time that she had a leaky valve and she has been following up with a shell coremaker in [facility] since that time. REVIEW OF SYSTEMS: At the time of my exam: CONSTITUTIONAL: Denies fever or chills. HEENT: Denies blurred vision, vision changes, or eye pain. Denies hemoptysis CARDIOVASCULAR: Denies chest pain. Denies orthopnea. Denies PND. Denies palpitations RESPIRATORY: Denies shortness of breath. GASTROINTESTINAL: Denies abdominal pain. Denies nausea or vomiting. HEMATOLOGIC: Denies bleeding disorders. GENITOURINARY: Denies any blood in urine. SKIN: Denies pruitis. Denies rash. PHYSICAL EXAM: VITAL SIGNS: Reviewed. GENERAL: Well-developed in no acute distress. HEENT: Head is normocephalic. Pupils are equal, round. Sclerae anicteric. Mucous membranes of the mouth are moist. Neck supple. No JVD or thyromegaly LUNGS: Respirations even and unlabored. Lungs essentially clear to auscultation bilaterally. HEART: Regular rate and rhythm. S1 and S2 heard. ABDOMEN: Soft. Nondistended. Nontender. EXTREMITIES: Normal range of motion. No clubbing or cyanosis. Peripheral pulses intact. Right lower extremity with erythema noted. Patient with significant small superficial wounds on all extremities. NEUROLOGIC: Awake and alert. Oriented x 3. ASSESSMENT: Right lower extremity cellulitis, likely secondary to IV drug abuse Leukocytosis History of endocarditis, 10 years ago Valvular heart disease including trace to mild MR and moderate severe TR History of IV drug abuse PLAN: 2D echo obtained and reviewed. Patient with moderate to severe TR. Patient does have a known history of valvular heart disease. Tricuspid regurgitation likely secondary to IV drug abuse with history of infective endocarditis approximately 10 years ago. Blood cultures thus far are negative. No plans for MAXIMINO at this time unless blood cultures come back positive. Continue IV antibiotics per infectious disease. Will attempt to obtain recent echocardiogr am performed at her primary cardiology office Nurse practitioner note has been reviewed by physician. Signing provider agrees with the documented findings, assessment, and plan of care documented by ASBESTOS SHINGLE ROOFER as a scribe. Past Medical History Past Medical History: No Reported History Additional Past Medical History / Comment(s): Endocarditis, leaky heart valve (unknown which) , sciatica, pneumothorax (r/t endocarditis), continues with IV drug abuse History of Any Multi-Drug Resistant Organisms: MRSA Date of last positivie culture/infection: 2008 MDRO Source:: lip Past Surgical History: No Surgical Hx Reported Additional Past Surgical History / Comment(s): Chest tube Past Anesthesia/Blood Transfusion Reactions: No Reported Reaction Past Psychological History: Anxiety, Depression Smoking Status: Current every day smoker Past Alcohol Use History: Occasional Past Drug Use History: Cocaine, Heroin, IV Drug Use, Marijuana, Opiates - Past Family History Mother Family Medical History: Cancer, Musculoskeletal Disorder, Osteoarthritis (OA), Rheumatoid Arthritis (RA) Medications and Allergies Home Medications Medication Instructions Recorded Confirmed Type Buprenorphine HCl/Naloxone HCl 1 film SL TID 01/25/21 01/28/24 History [Suboxone 8 mg-2 mg Sl Film] Allergies Allergy/AdvReac Type Severity Reaction Status Date / Time No Known Allergies Allergy Verified 01/28/24 12:52 Physical Exam Vitals: Vital Signs Temp Pulse Resp BP Pulse Ox 01/30/24 04:00 98.1 F 74 16 114/73 98 01/30/24 00:00 97.9 F 73 16 117/76 99 01/29/24 20:00 97.8 F 68 16 116/53 98 01/29/24 15:19 98.1 F 95 16 118/63 99 01/29/24 11:21 98.3 F 89 15 92/48 99 01/29/24 08:49 98.2 F 82 17 116/72 99 Intake and Output 01/29/24 01/30/24 01/30/24 22:59 06:59 14:59 Intake Total 128 Balance 128 Intake: IV 10 Invasive Line 2 10 Oral 118 Other: Voiding Method Toilet Toilet # Voids 3 2 Results 01/29/24 08:33 01/29/24 08:33 CBC 01/29/24 Range/Units 08:33 WBC 10.7 H (3.8-10.6) k/uL RBC 4.81 (3.80-5.40) m/uL Hgb 14.3 (11.4-16.0) gm/dL Hct 45.9 (34.0-46.0) % Plt Count 351 (150-450) k/uL Comprehensive Metabolic Panel 01/29/24 Range/Units 08:33 Sodium 140 (137-145) mmol/L Potassium 4.5 (3.5-5.1) mmol/L Chloride 111 H (98-107) mmol/L Carbon Dioxide 21 L (22-30) mmol/L BUN 13 (7-17) mg/dL Creatinine 0.63 (0.52-1.04) mg/dL Glucose 84 (74-99) mg/dL Calcium 8.6 (8.4-10.2) mg/dL Current Medications Generic Name Dose Route Start Last Admin Trade Name Freq PRN Reason Stop Dose Admin Hydrocodone Bitart/Acetaminophen 1 each 01/28/24 14:47 Hydrocodone/Apap 5-325mg 1 Each Tab PO Q6HR PRN Pain Clonidine 0.1 mg 01/28/24 16:00 01/29/24 21:48 Clonidine Hcl 0.1 Mg Tab PO Not Given TID ALISSA Heparin Sodium (Porcine) 5,000 unit 01/28/24 21:00 01/29/24 21:59 Heparin Sodium,Porcine 5,000 Unit/Ml 1 Ml Vial SQ 5,000 unit Q12HR ALISSA Administration Vancomycin HCl 1,250 mg/ 250 mls @ 125 mls/hr 01/30/24 16:00 Sodium Chloride IVPB Q8HR ALISSA Lorazepam 1 mg 01/28/24 14:47 Lorazepam 2 Mg/Ml Inj IV Q3HR PRN Anxiety Naloxone HCl 0.2 mg 01/28/24 16:16 Naloxone 0.4 Mg/Ml 1 Ml Vial IV Q2M PRN Opioid Reversal Non-Formulary Medication 1 film 01/29/24 16:00 01/29/24 21:47 Buprenorphine Hcl/Naloxone Hcl [Suboxone 8 Mg-2 Mg Sl Film] PO Not Given TID ALISSA Pantoprazole Sodium 40 mg 01/29/24 07:30 01/30/24 06:36 Pantoprazole 40 Mg Tablet PO 40 mg [id number] Administration Intake and Output 01/29/24 01/30/24 01/30/24 22:59 06:59 14:59 Intake Total 128 Balance 128 Intake: IV 10 Invasive Line 2 10 Oral 118 Other: Voiding Method Toilet Toilet # Voids 3 2 01/29/24 08:33 01/29/24 08:33
[2024-01-30 11:14] LABS: Basophils % (A) 0 %; Eosinophils # (A) 0.1 k/uL (0-0.7); Eosinophils % (A) 1 %; HCT 42.5 % (34.0-46.0); HGB 13.2 gm/dL (11.4-16.0); Hypochromasia Slight; Lymphocytes # (A) 2.5 k/uL (1.0-4.8); Lymphocytes % (A) 28 %; MCH 29.4 pg (25.0-35.0); MCV 94.7 fL (80.0-100.0); Mean Platelet Volume 8.4; Monocytes # (A) 0.3 k/uL (0-1.0); Monocytes % (A) 3 %; Neutrophils # (A) 5.7 k/uL (1.3-7.7); Neutrophils % (A) 65 %; Platelet Count 324 k/uL (150-450); RBC 4.49 m/uL (3.80-5.40); RDW 14.2 % (11.5-15.5); WBC 8.8 k/uL (3.8-10.6)
[2024-01-30 11:51] LABS: African American GFR (CKD) >90 (>60 ml/min/1.73 sqM); Anion Gap 6 mmol/L; Blood Urea Nitrogen 12 mg/dL (7-17); C Reactive Protein 2.7 mg/dL (<1.0); Calcium 8.4 mg/dL (8.4-10.2); Carbon Dioxide 23 mmol/L (22-30); Chloride 111 mmol/L (98-107); Glucose 67 mg/dL (74-99); Non-African American GFR(CKD) >90 (>60 ml/min/1.73 sqM); Potassium 3.9 mmol/L (3.5-5.1); Sodium 140 mmol/L (137-145)
--- NOTE | 2024-01-30 16:25 | P.PN ---
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 On today's evaluation that is 01/30/2024, Patient is afebrile patient is currently on room air and denies having any shortness of breath, the patient denies any chest pain or cough, the patient denies any nausea vomiting did not have any abdominal pain and no diarrhea, pain and redness to the right ankle has decreased in intensity. Patient white count normalized to 8.8, creatinine 0.61 her Vanco trough is 22.9 blood cultures are pending Objective - Vital Signs Vital signs: Vital Signs Temp 97.7 F 01/30/24 16:00 Pulse 86 01/30/24 16:00 Resp 16 01/30/24 16:00 BP 122/83 01/30/24 16:00 Pulse Ox 100 01/30/24 16:00 FiO2 Intake & Output 01/29/24 01/30/24 01/30/24 18:59 06:59 18:59 Intake Total 118 10 180 Balance 118 10 180 Intake: IV 10 Invasive Line 2 10 Oral 118 180 Other: Voiding Method Toilet Toilet # Voids 3 2 1 - Exam GENERAL DESCRIPTION: Middle-aged female lying in bed in no distress RESPIRATORY SYSTEM: Unlabored breathing , decreased breath sounds at bases HEART: S1 S2 regular rate and rhythm , ABDOMEN: Soft , no tenderness EXTREMITIES: Right foot ankle area swelling persist redness has decreased - Labs CBC & Chem 7: 01/30/24 08:53 01/30/24 08:53 Labs: Abnormal Lab Results - Last 24 Hours (Table) 01/30/24 Range/Units 08:53 Chloride 111 H (98-107) mmol/L Glucose 67 L (74-99) mg/dL C-Reactive Protein 2.7 H (<1.0) mg/dL Microbiology - Last 24 Hours (Table) 01/28/24 13:26 Blood Culture - Preliminary Blood 01/28/24 13:05 Blood Culture - Preliminary Blood Assessment and Plan (1) Cellulitis of right ankle Current Visit: Yes Status: Acute Code(s): L03.115 - CELLULITIS OF RIGHT LOWER LIMB SNOMED Code(s): 61508509058941259 Plan: 1patient presented hospital increasing pain and swelling bilateral extremities patient's right ankle area did show some diffuse swelling and redness concerning for cellulitis x-rays were negative for any bony abnormality questionable related to her IV drug use and injecting the area however the patient categorically denied injecting into that area recently patient did have previous history of MRSA infection and will need to cover for MRSA while waiting for the culture to finalize 2-patient did have some improvement in her redness to the right ankle area and will continue with vancomycin pharmacy to dose target trough of 15 while watching kidney function and Vanco trough closely Dictation was produced using [employer] dictation software. please excuse any grammatical, word or spelling errors. Time with Patient: Less than 30
[2024-01-30] MEDS: VANCOMYCIN 1,250 MG in SODIUM CHLORIDE 0.9% 250 ML IVPB SCH (16:30)
--- NOTE | 2024-01-30 19:40 | P.PN ---
Subjective Progress Note Date: 01/30/24 Patient remains on the stepdown unit. Currently on course of IV cefazolin for right lower extremity cellulitis. Redness improving remains swollen. Patient does have history of MRSA and remains on IV vancomycin with ID following closely. Echocardiogram reveals EF of 55% with moderate right ventricular dilat ion, moderate to severe TR, moderate right atrial dilation, trace MR. Patient states she has known valvular regurgitation. Cardiology not planning on MAXIMINO unless patient has positive blood cultures. Review of Systems Constitutional: Denied any fatigue denied any fever. Cardio vascular: denied any chest pain, palpitations Gastrointestinal: denied any nausea, vomiting, diarrhea Pulmonary: Denied any shortness of breath cough Neurologic denied any new focal deficits All inpatient medications were reviewed and appropriate changes in these medications as dictated in the interval history and assessment and plan. PHYSICAL EXAMINATION: GENERAL: The patient is alert and oriented x3, not in any acute distress. Well developed, well nourished. HEENT: Pupils are round and equally reacting to light. EOMI. No scleral icterus. No conjunctival pallor. Normocephalic, atraumatic. No pharyngeal erythema. No thyromegaly. CARDIOVASCULAR: S1 and S2 present. No murmurs, rubs, or gallops. PULMONARY: Chest is clear to auscultation, no wheezing or crackles. ABDOMEN: Soft, nontender, nondistended, normoactive bowel sounds. No palpable organomegaly. MUSCULOSKELETAL: No joint swelling or deformity. EXTREMITIES: No cyanosis, clubbing, or pedal edema. Swelling to the right ankle, erythema improving NEUROLOGICAL: Gross neurological examination did not reveal any focal deficits. SKIN: No rashes. Assessment and Plan Right foot swelling and cellulitis, currently on course of IV vancomycin, ID fol lowing. Hx of IV drug abuse and infective endocarditis Moderate to severe tricuspid regurgitation; no plans for MAXIMINO, blood cultures are negative so far. Anxiety/Depression History of MRSA Chronic nicotinue use Hx of hepatitis C infection GI prophylaxis DVT prophylaxis Full Code The impression and plan of care has been dictated by Raya Weinberg, Nurse Practitioner as directed. Dr. Valerie MD I have performed a history and physical examination and medical decision making of this patient, discussed the same with the dictator, and agree with the dictators assessment and plan as written, documented as a scribe. Based on total visit time, I have performed more than 50% of this visit. Objective - Vital Signs Vital signs: Vital Signs Temp 97.7 F 01/30/24 08:50 Pulse 66 01/30/24 08:50 Resp 16 01/30/24 08:50 BP 142/84 01/30/24 08:50 Pulse Ox 99 01/30/24 08:50 FiO2 Intake & Output 01/29/24 01/30/24 01/30/24 18:59 06:59 18:59 Intake Total 118 10 Balance 118 10 Intake: IV 10 Invasive Line 2 10 Oral 118 Other: Voiding Method Toilet Toilet # Voids 3 2 - Labs CBC & Chem 7: 01/30/24 08:53 01/30/24 08:53 Labs: Microbiology - Last 24 Hours (Table) 01/28/24 13:26 Blood Culture - Preliminary Blood 01/28/24 13:05 Blood Culture - Preliminary Blood Assessment and Plan Time with Patient: Less than 30
[2024-01-30 20:26] LABS: Erythrocyte Sedimentation Rate 35 mm/Hr (0-20)
[2024-01-30 23:38] VITALS: RESP 16
[2024-01-31 10:25] LABS: African American GFR (CKD) >90 (>60 ml/min/1.73 sqM); Non-African American GFR(CKD) >90 (>60 ml/min/1.73 sqM)
--- NOTE | 2024-01-31 11:34 | P.PN ---
Subjective HISTORY OF PRESENT ILLNESS: This is a 33-year-old female with a past medical history significant for IV drug abuse, valvular heart disease, and endocarditis. Patient follows with an associate of Dr. Garcia in [place]. We have been asked to see the patient in consultation for tricuspid regurgitation. Patient examined at the bedside. Patient presented to the hospital due to discomfort in her right lower extremity. Patient is a IV drug abuser and does report injecting into her lower extremities. The patient currently denies any chest pain or pressure. She denies any shortness of breath. Patient was found to have a white count of 15 o n admission and she was started on IV antibiotics. Blood cultures were obtained which are negative at the 24-hour susan. Echocardiogram was obtained revealing ejection fraction 55%, moderate right ventricular dilatation, moderate to severe pulmonary hypertension, moderate right atrial dilatation, trace to mild MR, moderate to severe TR, and no pericardial effusion. Patient states she had endocarditis approximately 10 years ago secondary to IV drug abuse. She was told at that time that she had a leaky valve and she has been following up with a supervisor ticket sales in [facility] since that time. Addendum entered and electronically signed by Glenny Begum NP-C 01/30/24 14:10: Echocardiogram obtained from patient's primary cardiology office. Patient had an echocardiogram performed in February 2021 revealing ejection fraction of 65%, moderate enlargement of right ventricle, moderate enlargement of the right atrium, and severe tricuspid regurgitation. Findings on echocardiogram during this admission are chronic. 01/31/2024 Patient examined this morning the bedside. Patient denies chest pain or pressure. She denies shortness of breath. Blood cultures are negative at the 48-hour susan. Patient's white count has normalized. She remains on IV antibiotics per infectious disease. PHYSICAL EXAM: VITAL SIGNS: Reviewed. GENERAL: Well-developed in no acute distress. HEENT: Head is normocephalic. Pupils are equal, round. Sclerae anicteric. Mucous membranes of the mouth are moist. Neck supple. No JVD or thyromegaly LUNGS: Respirations even and unlabored. Lungs essentially clear to auscultation bilaterally. HEART: Regular rate and rhythm. S1 and S2 heard. ABDOMEN: Soft. Nondistended. Nontender. EXTREMITIES: Normal range of motion. No clubbing or cyanosis. Peripheral pulses intact. Right lower extremity with erythema noted. Patient with significant small superficial wounds on all extremities. NEUROLOGIC: Awake and alert. Oriented x 3. ASSESSMENT: Right lower extremity cellulitis, likely secondary to IV drug abuse Leukocytosis History of endocarditis, 10 years ago Valvular heart disease including trace to mild MR and moderate severe TR History of IV drug abuse PLAN: Echocardiogram obtained from patient's primary cardiology office. Patient had an echocardiogram performed in February 2021 revealing ejection fraction of 65%, moderate enlargement of right ventricle, moderate enlargement of the right atrium, and severe tricuspid regurgitation. Findings on echocardiogram during this admission are chronic Tricuspid regurgitation likely secondary to IV drug abuse with history of infective endocarditis approximately 10 years ago No plans for MAXIMINO as blood cultures are negative at the 48-hour susan We will sign off. Please reconsult if needed. Nurse practitioner note has been reviewed by physician. Signing provider agrees with the documented findings, assessment, and plan of care documented by IT GENERALIST as a scribe. Objective - Vital Signs Vital signs: Vital Signs Temp 97.7 F 01/31/24 08:20 Pulse 63 01/31/24 08:20 Resp 16 01/31/24 08:20 BP 145/92 01/31/24 08:20 Pulse Ox 99 01/31/24 08:20 FiO2 Intake & Output 01/30/24 01/31/24 01/31/24 18:59 06:59 18:59 Intake Total 360 540 540 Balance 360 540 540 Intake: Oral 360 540 540 Other: Voiding Method Toilet # Voids 1 - Labs CBC & Chem 7: 01/30/24 08:53 01/31/24 09:41 Labs: Abnormal Lab Results - Last 24 Hours (Table) 01/30/24 01/30/24 Range/Units 08:53 08:53 ESR 35 H (0-20) mm/Hr Chloride 111 H (98-107) mmol/L Glucose 67 L (74-99) mg/dL C-Reactive Protein 2.7 H (<1.0) mg/dL Microbiology - Last 24 Hours (Table) 01/28/24 13:26 Blood Culture - Preliminary Blood 01/28/24 13:05 Blood Culture - Preliminary Blood
[2024-01-31 12:35] VITALS: BP 132/90; PULSE 60; TEMP 98
--- NOTE | 2024-01-31 17:39 | P.PN ---
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 On today's evaluation that is 01/31/2024, patient has been afebrile, patient is breathing comfortably and is currently on room air, patient denies having any significant cough no chest pain shortness of breath, patient denies nausea vomiting or diarrhea and no abdominal pain, the patient pain to the right ankle has decreased in intensity and denies having the pain on weightbearing. Patient is feeling better wants to go home. Patient white count 8.8 as of yesterday creatinine 0.54 blood culture has been negative Objective - Vital Signs Vital signs: Vital Signs Temp 98 F 01/31/24 12:05 Pulse 60 01/31/24 12:05 Resp 16 01/31/24 12:05 BP 132/90 01/31/24 12:05 Pulse Ox 98 01/31/24 12:05 FiO2 Intake & Output 01/30/24 01/31/24 01/31/24 18:59 06:59 18:59 Intake Total 360 540 540 Balance 360 540 540 Intake: Oral 360 540 540 Other: Voiding Method Toilet # Voids 1 - Exam GENERAL DESCRIPTION: Middle-aged female lying in bed in no distress RESPIRATORY SYSTEM: Unlabored breathing , decreased breath sounds at bases HEART: S1 S2 regular rate and rhythm , ABDOMEN: Soft , no tenderness EXTREMITIES: Right foot ankle area swelling has decreased redness has resolved - Labs CBC & Chem 7: 01/30/24 08:53 01/31/24 09:41 Labs: Abnormal Lab Results - Last 24 Hours (Table) 01/30/24 Range/Units 08:53 ESR 35 H (0-20) mm/Hr Microbiology - Last 24 Hours (Table) 01/28/24 13:26 Blood Culture - Preliminary Blood 01/28/24 13:05 Blood Culture - Preliminary Blood Assessment and Plan (1) Cellulitis of right ankle Status: Acute Code(s): L03.115 - CELLULITIS OF RIGHT LOWER LIMB SNOMED Code(s): 31548271628030269 Plan: 1patient presented hospital increasing pain and swelling bilateral extremities patient's right ankle area did show some diffuse swelling and redness concerning for cellulitis x-rays were negative for any bony abnormality questionable rela abel to her IV drug use and injecting the area however the patient categorically denied injecting into that area recently patient did have previous history of MRSA infection and will need to cover for MRSA while waiting for the culture to finalize 2-patient did have some improvement in her redness to the right ankle area and culture has been negative patient wants to go home we will consider 10-day course of Bactrim DS and close outpatient follow-up discussed with the BUSINESS SOLUTIONS ARCHITECT for admitting team working on discharge Dictation was produced using [employer] dictation software. please excuse any grammatical, word or spelling errors. Time with Patient: Less than 30
[2024-02-01] MEDS ORDERED: VANCOMYCIN TROUGH DUE 1 EACH MISC MISCELLANE ONE (07:00)
--- NOTE | 2024-02-03 21:35 | P.DS ---
Providers Date of admission: 01/28/24 16:17 Attending physician: Tejinder Avila Consults: 01/29/24 15:37 Consult Physician Routine Consulting Provider: David Sands Consult Reason/Comments: cellulitis Do you want consulting provider notified?: Yes Primary care physician: [facility] Course: Final Diagnosis Right foot swelling and cellulitis improved with vancomycin Hx of IV drug abuse and infective endocarditis Moderate to severe tricuspid regurgitation; no plans for MAXIMINO, blood cultures are negative so far. Anxiety/Depression History of MRSA Chronic nicotinue use Hx of hepatitis C infection Discharge Disposition Patient is stable for discharge home. Patient has been cleared by cardiology. No plans for MAXIMINO this admission. Echocardiogram findings are chronic. Patient recommended to follow up with her usual adding machine servicer on discharge. Patient to complete course of antibiotics with 7 days of bactrim DS. Patient to follow up with Dr. Sands on discharge as well. Hospital Course This is a 33-year-old female with a past medical history significant for IV drug abuse, valvular heart disease, and endocarditis. Patient follows with an associate of Dr. Garcia in [place]. Patient presented to the hospital due to discomfort in her right lower extremity. Patient is a IV drug abuser and does report injecting into her lower extremities. The patient currently denies any chest pain or pressure. She denies any shortness of breath. Patient was found to have a white count of 15 on admission. Blood cultures were obtained and found to be negative. Echocardiogram was obtained revealing ejection fraction 55%, moderate right ventricular dilatation, moderate to severe pulmonary hypertension, moderate right atrial dilatation, trace to mild MR, moderate to severe TR, and no pericardial effusion. Patient states she had endocarditis approximately 10 years ago secondary to IV drug abuse. She was told at that time that she had a leaky valve and she has been following up with a adding machine servicer in [place] since that time. Admitted to the hospital with cardiology and ID consultation. Patient received IV vancomycin therapy does have history of MRSA. Redness improving as well as swelling improving, to the right ankle. No plans for MAXIMINO at this time as patient has known history of valvular heart disease and blood culture has remained negative. She is not having any chest pain, denies shortness of breath. Alert x 3. White blood cell count has improved down to 8.8. Renal function WNL. Hemodynamically stable. Please see medication reconciliation for a list of current medications. Thank you for allowing us to participate in the care of this patient. The impression and plan of care has been dictated by Raya Weinberg, Nurse Practitioner as directed. Dr. Valerie MD I have performed a history and physical examination and medical decision making of this patient, discussed the same with the dictator, and agree with the dictators assessment and plan as written, documented as a scribe. Based on total visit time, I have performed more than 50% of this visit. Patient Condition at Discharge: Stable Plan - Discharge Summary Discharge Rx Participant: No New Discharge Prescriptions: New Sulfamethox-Tmp 800-160Mg [Bactrim DS 800-160 mg] 1 tab PO Q12HR 7 Days #14 tab Pantoprazole [Protonix] 40 mg PO AC-BRKFST #30 tab Continue Buprenorphine HCl/Naloxone HCl [Suboxone 8 mg-2 mg Sl Film] 1 film SL TID Discharge Medication List Buprenorphine HCl/Naloxone HCl [Suboxone 8 mg-2 mg Sl Film] 1 film SL TID 01/25/21 [History] Pantoprazole [Protonix] 40 mg PO AC-BRKFST #30 tab 01/31/24 [Rx] Sulfamethox-Tmp 800-160Mg [Bactrim DS 800-160 mg] 1 tab PO Q12HR 7 Days #14 tab 01/31/24 [Rx] Follow up Appointment(s)/Referral(s): Felisha Xie NPC [REFERRING] - 02/05/24 4:15 pm Patient Instructions/Handouts: Cellulitis (ED) Discharge Disposition: HOME SELF-CARE
== END 2024-01-31 13:35 | disposition home or self-care (01) | DRG 383 ==
LOC: EC 12:39 → 3SCARD 16:17
PROVIDERS: ADMIT Hospitalist; ATTEND Hospitalist
DX: L03.115 Cellulitis of right lower limb (principal); I08.1 Rheumatic disorders of both mitral and tricuspid valves; I27.20 Pulmonary hypertension, unspecified; M54.30 Sciatica, unspecified side; F17.200 Nicotine dependence, unspecified, uncomplicated; F32.A Depression, unspecified; F41.9 Anxiety disorder, unspecified; Z86.14 Personal history of Methicillin resistant Staphylococcus aureus infection; Z86.79 Personal history of other diseases of the circulatory system; Z86.19 Personal history of other infectious and parasitic diseases; F11.10 Opioid abuse, uncomplicated; F14.10 Cocaine abuse, uncomplicated
CPT/HCPCS: 36415; 71046; 80048; 80053; 80202; 82565; 83605; 83735; 83880; 84484; 85025; 85652; 86140; 87040; 93005; 93306; 96365; 96366; 96367; 99285

== ENCOUNTER 2024-09-10 11:57 | Emergency (ER) | payer OTHER ==
[2024-09-10 12:03] VITALS: TEMP 98.4
--- NOTE | 2024-09-10 12:34 | ED ---
Female Urogenital HPI - General Chief complaint: Urogenital Stated complaint: Abd pain Time Seen by Provider: 09/10/24 12:17 Source: patient, RN notes reviewed Mode of arrival: ambulatory Limitations: no limitations - History of Present Illness Initial comments: 33-year-old female presenting for right flank pain x 1 day with hematuria. States this morning she began to feel a constant, pressure in her right flank that radiates to the back. Reports over the past couple of days she has been experiencing urinary frequency and urgency, but this morning she began to experience blood clots in her urine which prompted her to be seen at urgent care. She was sent to the ER from urgent care for CT scan to rule out kidney stones. Denies vaginal discharge, fever, nausea, vomiting. Last Menstrual Period: 08/27/24 - Related Data Home Medications Medication Instructions Recorded Confirmed Buprenorphine HCl/Naloxone HCl 0.5 - 1 film SL DAILY 01/25/21 09/10/24 [Suboxone 8 mg-2 mg Sl Film] Cephalexin [Keflex] 1,000 mg PO Q12H 09/10/24 09/10/24 Previous Rx's Medication Instructions Recorded Cephalexin [Keflex] 500 mg PO Q6HR 7 Days #28 cap 09/10/24 Allergies Allergy/AdvReac Type Severity Reaction Status Date / Time No Known Allergies Allergy Verified 09/10/24 15:05 Review of Systems ROS Statement: Those systems with pertinent positive or pertinent negative responses have been documented in the HPI. ROS Other: All systems not noted in ROS Statement are negative. Past Medical History Past Medical History: No Reported History Additional Past Medical History / Comment(s): Endocarditis, leaky heart valve (unknown which) , sciatica, pneumothorax (r/t endocarditis), continues with IV drug abuse History of Any Multi-Drug Resistant Organisms: MRSA Date of last positivie culture/infection: 2008 MDRO Source:: lip Past Surgical History: No Surgical Hx Reported Additional Past Surgical History / Comment(s): Chest tube Past Anesthesia/Blood Transfusion Reactions: No Reported Reaction Past Psychological History: Anxiety, Depression Smoking Status: Current every day smoker Past Alcohol Use History: Occasional Past Drug Use History: Cocaine, Heroin, IV Drug Use, Marijuana, Opiates - Past Family History Mother Family Medical History: Cancer, Musculoskeletal Disorder, Osteoarthritis (OA), Rheumatoid Arthritis (RA) General Exam Limitations: no limitations General appearance: alert, in no apparent distress Head exam: Present: atraumatic, normocephalic, normal inspection Eye exam: Present: normal appearance, PERRL, EOMI. Absent: scleral icterus, conjunctival injection, periorbital swelling GI/Abdominal exam: Present: soft, normal bowel sounds. Absent: distended, tenderness, guarding, rebound, rigid Back exam: Absent: CVA tenderness (R), CVA tenderness (L) Neurological exam: Present: alert, oriented X3 Psychiatric exam: Present: normal affect, normal mood Skin exam: Present: warm, dry, intact, normal color. Absent: rash Course Vital Signs 09/10/24 09/10/24 11:59 15:22 Temperature 98.4 F Pulse Rate 73 65 Respiratory 16 18 Rate Blood Pressure 149/92 121/79 O2 Sat by Pulse 99 100 Oximetry Medical Decision Making - Medical Decision Making Was pt. sent in by a medical professional or institution (, PA, ALTERATIONS SUPERVISOR, urgent care, hospital, or residential...) When possible be specific @ -Sent from urgent care to rule out kidney stone Did you speak to anyone other than the patient for history (EMS, parent, family, police, friend...)? What history was obtained from this source @ -No Did you review nursing and triage notes (agree or disagree)? Why? @ -I reviewed and agree with nursing and triage notes Were old charts reviewed (outside hosp., previous admission, EMS record, old EKG, old radiological studies, urgent care reports/EKG's, residential records)? Report findings @ -No old charts were reviewed Differential Diagnosis (chest pain, altered mental status, abdominal pain women, abdominal pain men, vaginal bleeding, weakness, fever, dyspnea, syncope, headache, dizziness, GI bleed, back pain, seizure, CVA, palpatations, mental health, musculoskeletal)? @ -Differential Abdominal Pain Women: Appendicitis, Cholecystitis, diverticulosis, ischemic bowel, pancreatitis, hepatitis, UTI, gastroenteritis, AAA, incarcerated hernia, bowel obstruction, constipation, inflammatory bowel, hepatitis, peptic ulcer disease, splenic infarction, perforated viscus, vulvitis, ovarian torsion, PID, kidney stone, placenta abruption, this is not meant to be an all-inclusive list EKG interpreted by me (3pts min.). @ -None X-rays interpreted by me (1pt min.). @ -None done CT interpreted by me (1pt min.). @ -CT abdomen pelvis reveals no evidence for obstructive uropathy, hepatomegaly U/S interpreted by me (1pt. min.). @ -None done What testing was considered but not performed or refused? (CT, X-rays, U/S, labs)? Why? @ -None What meds were considered but not given or refused? Why? @ -None Did you discuss the management of the patient with other professionals (professionals i.e. , PA, ALTERATIONS SUPERVISOR, lab, RT, psych nurse, sexual assault social worker, dry molder, teacher, press officer, returned case inspector)? Give summary @ -No Was smoking cessation discussed for >3mins.? @ -No Was critical care preformed (if so, how long)? @ -No Were there social determinants of health that impacted care today? How? (Homelessness, low income, unemployed, alcoholism, drug addiction, transportation, low edu. Level, literacy, decrease access to med. care, care home, rehab)? @ -No Was there de-escalation of care discussed even if they declined (Discuss DNR or withdrawal of care, Hospice)? DNR status @ -No What co-morbidities impacted this encounter? (DM, HTN, Smoking, COPD, CAD, Cancer, CVA, ARF, Chemo, Hep., AIDS, mental health diagnosis, sleep apnea, morbid obesity)? @ -None Was patient admitted / discharged? Hospital course, mention meds given and route, prescriptions, significant lab abnormalities, going to OR and other pertinent info. @ -Discharged. This is a 33-year-old female presenting with right flank pain with associated hematuria. Vital signs within acceptable limits. No acute distress. Abdomen is soft and nontender. Patient was provided with IV fluids, and analgesics. Lab work remarkable for white blood cell count 13.9 and large white blood cells and red blood cells in urinalysis. CT reveals no evidence for obstructive uropathy. Results discussed with patient. Discussed diagnosis of pyelonephritis, I believe it is safe to discharge patient home as patient is otherwise healthy, afebrile and nontachycardic, tolerating orals well. Strict return precautions discussed, patient is agreeable to plan. Advised to follow- up with PCP in 1 to 3 days for reevaluation. Patient was given dose of IV IV Rocephin and prescribed Keflex 4 times daily for 7 days. Case was discussed with my ED attending Dr. Dunlap. Patient discharged in stable condition. Undiagnosed new problem with uncertain prognosis? @ -No Drug Therapy requiring intensive monitoring for toxicity (Heparin, Nitro, Insulin, Cardizem)? @ -No Were any procedures done? @ -No Diagnosis/symptom? @ -Right pyelonephritis Acute, or Chronic, or Acute on Chronic? @ -Acute Uncomplicated (without systemic symptoms) or Complicated (systemic symptoms)? @ -Uncomplicated Side effects of treatment? @ -No Exacerbation, Progression, or Severe Exacerbation? @ -No Poses a threat to life or bodily function? How? (Chest pain, [place], [place], pneumonia, PE, COPD, DKA, ARF, appy, cholecystitis, CVA, Diverticulitis, Homicidal, Suicidal, threat to staff... and all critical care pts) @ -Not at this time - Lab Data Result diagrams: 09/10/24 12:49 09/10/24 12:49 Lab Results 09/10/24 09/10/24 09/10/24 Range/Units 12:49 12:49 12:49 WBC 13.9 H (3.8-10.6) k/uL RBC 4.71 (3.80-5.40) m/uL Hgb 14.4 (11.4-16.0) gm/dL Hct 44.2 (34.0-46.0) % MCV 93.9 (80.0-100.0) fL MCH 30.6 (25.0-35.0) pg MCHC 32.6 (31.0-37.0) g/dL RDW 12.6 (11.5-15.5) % Plt Count 261 (150-450) k/uL MPV 7.7 Neutrophils % 74 % Lymphocytes % 21 % Monocytes % 4 % Eosinophils % 1 % Basophils % 0 % Neutrophils # 10.2 H (1.3-7.7) k/uL Lymphocytes # 2.9 (1.0-4.8) k/uL Monocytes # 0.5 (0-1.0) k/uL Eosinophils # 0.1 (0-0.7) k/uL Basophils # 0.0 (0-0.2) k/uL Sodium (137-145) mmol/L Potassium (3.5-5.1) mmol/L Chloride (98-107) mmol/L Carbon Dioxide (22-30) mmol/L Anion Gap mmol/L BUN (7-17) mg/dL Creatinine (0.52-1.04) mg/dL Est GFR (CKD-EPI)AfAm (>60 ml/min/1.73 sqM) Est GFR (CKD-EPI)NonAf (>60 ml/min/1.73 sqM) Glucose (74-99) mg/dL Plasma Lactic Acid Russell (0.7-2.0) mmol/L Calcium (8.4-10.2) mg/dL Total Bilirubin (0.2-1.3) mg/dL AST (14-36) U/L ALT (4-34) U/L Alkaline Phosphatase (38-126) U/L Total Protein (6.3-8.2) g/dL Albumin (3.5-5.0) g/dL Urine Color Yellow Urine Appearance Turbid H (Clear) Urine pH 6.0 (5.0-8.0) Ur Specific [place] 1.021 (1.001-1.035) Urine Protein 2+ H (Negative) Urine Glucose (UA) Negative (Negative) Urine Ketones Negative (Negative) Urine Blood Large H (Negative) Urine Nitrite Negative (Negative) Urine Bilirubin Negative (Negative) Urine Urobilinogen <2.0 (<2.0) mg/dL Ur Leukocyte Esterase Large H (Negative) Urine RBC >182 H (0-5) /hpf Urine WBC >182 H (0-5) /hpf Urine WBC Clumps Occasional H (None) /hpf Ur Squamous Epith Cells 2 (0-4) /hpf Urine Mucus Moderate H (None) /hpf Urine HCG, Qual Not Detected (Not Detectd) 09/10/24 09/10/24 Range/Units 12:49 12:49 WBC (3.8-10.6) k/uL RBC (3.80-5.40) m/uL Hgb (11.4-16.0) gm/dL Hct (34.0-46.0) % MCV (80.0-100.0) fL MCH (25.0-35.0) pg MCHC (31.0-37.0) g/dL RDW (11.5-15.5) % Plt Count (150-450) k/uL MPV Neutrophils % % Lymphocytes % % Monocytes % % Eosinophils % % Basophils % % Neutrophils # (1.3-7.7) k/uL Lymphocytes # (1.0-4.8) k/uL Monocytes # (0-1.0) k/uL Eosinophils # (0-0.7) k/uL Basophils # (0-0.2) k/uL Sodium 137 (137-145) mmol/L Potassium 4.9 (3.5-5.1) mmol/L Chloride 109 H (98-107) mmol/L Carbon Dioxide 24 (22-30) mmol/L Anion Gap 4 mmol/L BUN 14 (7-17) mg/dL Creatinine 0.66 (0.52-1.04) mg/dL Est GFR (CKD-EPI)AfAm >90 (>60 ml/min/1.73 sqM) Est GFR (CKD-EPI)NonAf >90 (>60 ml/min/1.73 sqM) Glucose 79 (74-99) mg/dL Plasma Lactic Acid Russell 0.6 L (0.7-2.0) mmol/L Calcium 8.7 (8.4-10.2) mg/dL Total Bilirubin 2.6 H (0.2-1.3) mg/dL AST 35 (14-36) U/L ALT 16 (4-34) U/L Alkaline Phosphatase 29 L (38-126) U/L Total Protein 7.3 (6.3-8.2) g/dL Albumin 4.3 (3.5-5.0) g/dL Urine Color Urine Appearance (Clear) Urine pH (5.0-8.0) Ur Specific [place] (1.001-1.035) Urine Protein (Negative) Urine Glucose (UA) (Negative) Urine Ketones (Negative) Urine Blood (Negative) Urine Nitrite (Negative) Urine Bilirubin (Negative) Urine Urobilinogen (<2.0) mg/dL Ur Leukocyte Esterase (Negative) Urine RBC (0-5) /hpf Urine WBC (0-5) /hpf Urine WBC Clumps (None) /hpf Ur Squamous Epith Cells (0-4) /hpf Urine Mucus (None) /hpf Urine HCG, Qual (Not Detectd) Disposition Clinical Impression: Pyelonephritis of right kidney Disposition: HOME SELF-CARE Condition: Stable Instructions (If sedation given, give patient instructions): Kidney Infection (ED) Additional Instructions: Take Keflex 4 times daily for 7 days. Hydrate aggressively. Please return to the Emergency Department if symptoms worsen or any other concerns. Prescriptions: Cephalexin [Keflex] 500 mg PO Q6HR 7 Days #28 cap Is patient prescribed a controlled substance at d/c from ED?: No Referrals: Emma Lundy [Primary Care Provider] - 1-2 days Time of Disposition: 15:15
[2024-09-10] MEDS: SODIUM CHLORIDE 0.9% 1,000 ML IV STA (13:03)
[2024-09-10] MEDS: KETOROLAC 15 MG/ML 1 ML VIAL IVP STA (13:04)
[2024-09-10 13:26] LABS: Appearance,Urine Turbid (Clear); Bilirubin,Urine Negative (Negative); Blood,Urine Large (Negative); Color,Urine Yellow; Glucose,Urine (UA) Negative (Negative); Ketones,Urine Negative (Negative); Leukocyte Esterase,Urine Large (Negative); Mucus,Urine Moderate /hpf; Nitrite,Urine Negative (Negative); Protein,Urine 2+ (Negative); RBC,Urine >182 /hpf (0-5); Specific Gravity,Urine 1.021 (1.001-1.035); Squamous Epithelial Cell,Urine 2 /hpf (0-4); Urobilinogen,Urine <2.0 mg/dL (<2.0); WBC,Urine >182 /hpf (0-5)
[2024-09-10 13:34] LABS: Basophils % (A) 0 %; Eosinophils # (A) 0.1 k/uL (0-0.7); Eosinophils % (A) 1 %; HCT 44.2 % (34.0-46.0); HGB 14.4 gm/dL (11.4-16.0); Lymphocytes # (A) 2.9 k/uL (1.0-4.8); Lymphocytes % (A) 21 %; MCH 30.6 pg (25.0-35.0); MCHC 32.6 g/dL (31.0-37.0); MCV 93.9 fL (80.0-100.0); Mean Platelet Volume 7.7; Monocytes # (A) 0.5 k/uL (0-1.0); Monocytes % (A) 4 %; Neutrophils # (A) 10.2 k/uL (1.3-7.7); Neutrophils % (A) 74 %; Platelet Count 261 k/uL (150-450); RBC 4.71 m/uL (3.80-5.40); RDW 12.6 % (11.5-15.5); WBC 13.9 k/uL (3.8-10.6)
[2024-09-10 13:51] LABS: ALT 16 U/L (4-34); African American GFR (CKD) >90 (>60 ml/min/1.73 sqM); Anion Gap 4 mmol/L; Blood Urea Nitrogen 14 mg/dL (7-17); Calcium 8.7 mg/dL (8.4-10.2); Carbon Dioxide 24 mmol/L (22-30); Chloride 109 mmol/L (98-107); Glucose 79 mg/dL (74-99); Non-African American GFR(CKD) >90 (>60 ml/min/1.73 sqM); Sodium 137 mmol/L (137-145); Total Bilirubin 2.6 mg/dL (0.2-1.3)
[2024-09-10 14:13] LABS: AST 35 U/L (14-36); Albumin 4.3 g/dL (3.5-5.0); Alkaline Phosphatase 29 U/L (38-126); Potassium 4.9 mmol/L (3.5-5.1); Total Protein 7.3 g/dL (6.3-8.2)
--- NOTE | 2024-09-10 14:16 | CT ---
EXAMINATION TYPE: CT abdomen pelvis wo con CT DLP: 622.8 mGycm, Automated exposure control for dose reduction was used. DATE OF EXAM: 09/10/2024 1:54 PM COMPARISON: CT chest abdomen pelvis 11/19/2019 CLINICAL INDICATION:Female, 33 years old with history of right flank pain, kidney stone suspected; ri t flank pain TECHNIQUE: Standard CT of the abdomen and pelvis without IV or oral contrast. Lack of IV or oral co ntrast limits evaluation of solid and hollow organ viscera. Coronal and sagittal reformats were perfo rmed. FINDINGS: LOWER CHEST: Visualized lung bases are clear. Cardiomegaly. ABDOMEN LIVER: Enlarged liver measuring 17.0 cm in CC dimension. Small region of low attenuation adjacent to the fossa ligament likely representing focal fatty infiltration. GALLBLADDER AND BILE DUCTS: Unremarkable noncontrast appearance PANCREAS: Unremarkable noncontrast appearance SPLEEN: Unremarkable noncontrast appearance ADRENAL GLANDS: Unremarkable noncontrast appearance. KIDNEYS AND URETERS: No evidence of hydronephrosis or renal calculus. No definitive ureteral calculu s. PELVIS BLADDER: Incompletely distended but grossly unremarkable. REPRODUCTIVE: IUD is present within the uterus. ABDOMEN & PELVIS STOMACH AND BOWEL: Stomach and duodenum are unremarkable. No focal bowel wall thickening or surroundi ng inflammatory changes. No pneumatosis. The appendix is not definitively visualized however there is no significant inflammatory changes within the right lower quadrant. No evidence of bowel obstructio n. PERITONEUM: No evidence of pneumoperitoneum or free fluid. VASCULATURE: No evidence of aortic aneurysm. Right-sided pelvic phlebolith. MUSCULOSKELETAL: No acute osseous abnormalities LYMPH NODES: No gross evidence for lymphadenopathy. SOFT TISSUE/ABDOMINAL WALL: Unremarkable IMPRESSION: 1. No evidence for obstructive uropathy. 2. Hepatomegaly. [facility], , 09/10/2024 2:14 PM
[2024-09-10] MEDS: cefTRIAXone IN SWFI 1,000 MG/10 ML SYRINGE IVP STA (15:15)
[2024-09-10 15:22] VITALS: BP 121/79; PULSE 65; RESP 18
== END 2024-09-10 15:22 | disposition home or self-care (01) ==
LOC: EC 11:57
DX: N12 Tubulo-interstitial nephritis, not specified as acute or chronic (principal); F17.200 Nicotine dependence, unspecified, uncomplicated
CPT/HCPCS: 99284; 96374; 96375; 96361; 36415; 80053; 83605; 85025; 81001; 81025; 87086; 74176; J0696; J1885